=== PATIENT | male | born 1960 | race Two or more races ===

== ENCOUNTER 2020-01-18 12:39 | Outpatient (REF) | payer MEDICARE, MEDICAID, SELFPAY | END 2020-01-18 12:40 | disposition home or self-care (01) | LOC: HO.LAB 12:39 | PROVIDERS: PCP Internal Medicine; Visit Provider Internal Medicine | DX: Z20.828 Contact with and (suspected) exposure to other viral communicable diseases (principal) | CPT/HCPCS: 87635 ==

== ENCOUNTER 2021-07-02 10:56 | Emergency (ER) | payer OTHER, SELFPAY ==
--- NOTE | 2021-07-02 | ECG_ITS ---
Test Reason : palpitatiom Blood Pressure : / mmHG Vent. Rate : 147 BPM Atrial Rate : 120 BPM P-R Int : 000 ms QRS Dur : 078 ms QT Int : 280 ms P-R-T Axes : 000 006 022 degrees QTc Int : 438 ms Atrial fibrillation with RVR Nonspecific ST abnormality Abnormal ECG No previous ECGs available Referred By: Generic ED Physician Electronically Signed By:Basil Avila
[2021-07-02 11:51] VITALS: BP 145/85; PULSE 138; RESP 18; TEMP 35.5; O2SAT 96; BMI 31.1
--- NOTE | 2021-07-02 12:19 | ED_ITS ---
HPI - Arrhythmia/Palpitations General Chief Complaint: Arrhythmia/Palpitations Stated Complaint: Rapid heartbeat Time Seen by Provider: 07/02/21 12:11 Source: patient and family History of Present Illness HPI narrative: Patient presents with 1 hour worth of palpitations. Some dyspnea. No chest pain. He states he has had episodes similar to this in the past but has not been formally diagnosed with a specific rhythm such as atrial fibrillation. He recently had a stress test as an outpatient secondary to the symptoms. He does not yet know the results. He is not on medications for dysrhythmia. He denies other symptoms such as nausea vomiting No causative factors. He was sitting in a car when the symptoms started today. No recent illnesses Related Data Previous Rx's Medication Instructions Recorded apixaban 5 mg tablet (Eliquis) 5 mg PO BID #60 tab 07/02/21 diltiazem HCl 120 mg 120 mg PO DAILY #30 cap 07/02/21 capsule,extended release 24 hr Allergies Allergy/AdvReac Type Severity Reaction Status Date / Time No Known Allergies Allergy Verified 07/02/21 11:49 Review of Systems Constitutional: Comments: No fevers or chills Cardiovascular: Comments: Palpitations as mentioned Respiratory: Comments: Dyspnea without cough Gastrointestinal: Comments: No abdominal pain or nausea or vomiting or diarrhea Musculoskeletal: Comments: No leg swelling Integumentary/Breasts: Comments: No rash Neurologic: Comments: No weakness Psychiatric: Comments: No anxiety PMFSH Past Medical History Medical History (Updated 07/02/21 @ 14:55 by Marvin Rivas MD) Arrhythmia, long-term HTN (hypertension) Hyperlipidemia Social History Social History Advance Directives: No Advance Directives Information Provided: Yes Physical Exam Vital Signs: Vital Signs: Last Vital Signs Temp 96 F L 07/02/21 11:51 Pulse 109 H 07/02/21 13:49 Resp 18 07/02/21 13:49 BP 141/87 H 07/02/21 13:49 Pulse Ox 97 07/02/21 13:49 BMI result Body Mass Index 31.1 Const: Other: Awake alert in no acute distress. Tachycardic as noted HEENT: Other: No JVD Resp: Other: Clear and equal bilaterally without wheezes rales or rhonchi Cardio: Other: Tachycardic and irregularly irregular. Rate 130-140 beats per minute. No murmurs rubs or gallops GI: Other: Soft nontender nondistended Skin: Other: Warm pink and dry without rash Neuro: Other: Nonfocal Extrem: Other: No pedal edema Course Course Course Narrative: Tachy dysrhythmia Atrial fibrillation Supraventricular tachycardia Atrial flutter IV diltiazem, 10 mg. EKG shows irregularly irregular rhythm. Narrow complex. No obvious ischemia. 12:59. After diltiazem, patient is now in sinus rhythm with a rate of approximately 100 beats per minute. He feels asymptomatic. 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 Shea from [facility]. Will place in a call. His labs are unremarkable including troponin of 3.5 13:21. Case discussed with Dr. Guerra from [facility]. The records show only a Holter monitor so far. It showed no evidence of AFib. Will call his PCP. 13:46. Patient went back into atrial fibrillation 0150. Diltiazem 10 mg ordered. 1357. Patient converted back to sinus rhythm at a rate of 100 shortly after 2nd diltiazem dose. Will order diltiazem 30 mg short-acting p.o. as well as 120 mg long-acting. Will observe for the next hour. If he stays in sinus rhythm will discharge home with outpatient follow-up on Eliquis and diltiazem, if he goes back into atrial fibrillation while hospitalized for further monitoring 14:53. Patient is still in sinus rhythm. Stable for discharge home MDM - Arrhythmia/Palpitations Lab Data Result diagrams: 07/02/21 12:19 07/02/21 12:19 Labs: Lab Results 07/02/21 07/02/21 07/02/21 Range/Units 12:19 12:19 12:19 WBC 13.1 H (4.8-10.8) X10*3/uL RBC 5.43 (4.60-5.80) X10*6/uL Hgb 16.1 (14.0-18.0) g/dl Hct 47.6 (42.0-52.0) % MCV 87.7 (80.0-98.0) fL MCH 29.7 (27.0-33.0) pg MCHC 33.8 (31.0-36.0) g/dl RDW 12.9 (11.0-16.0) % Plt Count 376 (160-400) X10*3/uL MPV 10.7 (9.4-12.4) fL Immature Gran % (Auto) 0.3 (0.0-0.4) % Neut % (Auto) 58.6 (45-73) % Lymph % (Auto) 26.6 (20-40) % [place] % (Auto) 8.3 (2-11) % Eos % (Auto) 5.6 H (0-4) % Baso % (Auto) 0.6 (0-2) % Lymph # (Auto) 3.5 (1.2-4.9) X10*3/uL [place] # (Auto) 1.1 (0.1-1.2) X10*3/uL Eos # (Auto) 0.7 H (0.0-0.4) X10*3/uL Baso # (Auto) 0.1 (0.0-0.2) X10*3/uL Abs Immat Gran (auto) 0.04 H (0.00-0.03) X10*3/uL Absolute Neuts (auto) 7.7 (2.0-8.3) x10*3/uL Absolute Nucleated RBC 0.000 (0.0-0.012) X10*3/uL Nucleated RBC % (auto) 0.0 (0.0-0.2) /100WBC Sodium 138 (135-145) mmol/L Potassium 4.6 (3.3-5.1) mmol/L Chloride 104 (96-108) mmol/L Carbon Dioxide 23 (22-29) mmol/L Anion Gap 16 (12-20) BUN 17 H (9-16) mg/dL Creatinine 0.95 (0.5-1.4) mg/dL Estim Creat Clear Calc 90.3 Estimated GFR > 60 Random Glucose 123 H (60-115) mg/dL Calcium 10.4 H (8.4-10.2) mg/dL Troponin I High Sens 3.5 (<3.5-35.0) ng/L B-Natriuretic Peptide < 10 (<100) pg/mL Discharge Plan Discharge Clinical Impression: Atrial fibrillation Patient Disposition: Home, Self-Care Instructions: A-fib (Atrial Fibrillation) (ED) Additional Instructions: Follow-up with [facility] cardiology as soon as possible. Eliquis is a blood thinner Diltiazem is to help keep your heart rate low Prescriptions: New Eliquis 5 mg tablet 5 mg PO BID Qty: 60 0RF diltiazem HCl 120 mg capsule,extended release 24hr 120 mg PO DAILY Qty: 30 0RF
[2021-07-02 12:22] VITALS: BP 137/77; PULSE 144; RESP 20
[2021-07-02] MEDS: dilTIAZem HCL 50 MG/10 ML VIAL 10 MG IVPUSH ×2 (12:22→13:47)
[2021-07-02 12:27] LABS: MANUAL DIFF FLAG NO
[2021-07-02 12:33] LABS: Basophils Absolute Auto 0.1 X10*3/uL (0.0-0.2); Basophils Percent Auto 0.6 % (0-2); Eosinophils Absolute Auto 0.7 X10*3/uL (0.0-0.4); Eosinophils Percent Auto 5.6 % (0-4); Hematocrit 47.6 % (42.0-52.0); Hemoglobin 16.1 g/dl (14.0-18.0); Imm Gran Abs Auto 0.04 X10*3/uL (0.00-0.03); Imm Gran Pct Auto 0.3 % (0.0-0.4); Lymphocytes Absolute Auto 3.5 X10*3/uL (1.2-4.9); Lymphocytes Percent Auto 26.6 % (20-40); Mean Corpuscular HGB Conc 33.8 g/dl (31.0-36.0); Mean Corpuscular Hemoglobin 29.7 pg (27.0-33.0); Mean Corpuscular Volume 87.7 fL (80.0-98.0); Mean Platelet Volume 10.7 fL (9.4-12.4); Monocytes Absolute Auto 1.1 X10*3/uL (0.1-1.2); Monocytes Percent Auto 8.3 % (2-11); Neutrophils Absolute Auto 7.7 x10*3/uL (2.0-8.3); Neutrophils Percent Auto 58.6 % (45-73); Platelet Count 376 X10*3/uL (160-400); Red Blood Count 5.43 X10*6/uL (4.60-5.80); Red Cell Distribution Width 12.9 % (11.0-16.0); White Blood Count 13.1 X10*3/uL (4.8-10.8)
[2021-07-02 12:47] LABS: Anion Gap 16 (12-20); Blood Urea Nitrogen 17 mg/dL (9-16); Calcium 10.4 mg/dL (8.4-10.2); Carbon Dioxide 23 mmol/L (22-29); Chloride 104 mmol/L (96-108); Creatinine Clr Calc Pharmacy 90.3; Estimated Glomerular Filt Rate > 60; Glucose Random 123 mg/dL (60-115); Potassium 4.6 mmol/L (3.3-5.1); Sodium 138 mmol/L (135-145)
[2021-07-02 12:56] LABS: B Type Natriuretic Peptide < 10 pg/mL (<100); Troponin-I High Sensitivity 3.5 ng/L (<3.5-35.0)
--- NOTE | 2021-07-02 12:59 | ECG_ITS ---
Test Reason : PALPITATION Blood Pressure : / mmHG Vent. Rate : 099 BPM Atrial Rate : 099 BPM P-R Int : 150 ms QRS Dur : 084 ms QT Int : 336 ms P-R-T Axes : 043 -06 020 degrees QTc Int : 431 ms Normal sinus rhythm Normal ECG No previous ECGs available Referred By: Marvin Rivas Electronically Signed By:Basil Avila
[2021-07-02 13:42] VITALS: BP 115/91; PULSE 156; RESP 19
[2021-07-02 13:49] VITALS: BP 141/87; PULSE 109; RESP 18; O2SAT 97
[2021-07-02] MEDS: dilTIAZem HCL 30 MG TABLET PO (14:00)
[2021-07-02] MEDS: Apixaban 5 MG TABLET PO (14:01)
[2021-07-02] MEDS: dilTIAZem HCL SR 60 MG CAP.ER.12H 120 MG PO (14:07)
[2021-07-02 15:04] VITALS: BP 133/83; PULSE 96; RESP 18; O2SAT 96
== END 2021-07-02 15:18 | disposition home or self-care (01) ==
PROVIDERS: Emergency Provider Emergency Medicine; PCP Internal Medicine
DX: I48.91 Unspecified atrial fibrillation (principal); R00.2 Palpitations; R06.02 Shortness of breath; I10 Essential (primary) hypertension; E78.5 Hyperlipidemia, unspecified
CPT/HCPCS: 36415; 80048; 83880; 84484; 85025; 93005; 96374; 96376; 99284

== ENCOUNTER 2021-08-17 12:27 | Emergency (ER) | payer OTHER, SELFPAY ==
[2021-08-17 13:29] VITALS: BP 147/79; PULSE 81; RESP 20; TEMP 36.2; O2SAT 97; BMI 31.9
[2021-08-17 13:49] LABS: MANUAL DIFF FLAG NO
[2021-08-17 13:53] LABS: Basophils Absolute Auto 0.1 X10*3/uL (0.0-0.2); Basophils Percent Auto 0.7 % (0-2); Eosinophils Absolute Auto 0.5 X10*3/uL (0.0-0.4); Hematocrit 41.9 % (42.0-52.0); Imm Gran Abs Auto 0.01 X10*3/uL (0.00-0.03); Imm Gran Pct Auto 0.1 % (0.0-0.4); Lymphocytes Absolute Auto 2.4 X10*3/uL (1.2-4.9); Lymphocytes Percent Auto 27.2 % (20-40); Mean Corpuscular HGB Conc 33.4 g/dl (31.0-36.0); Mean Corpuscular Hemoglobin 29.2 pg (27.0-33.0); Mean Corpuscular Volume 87.3 fL (80.0-98.0); Mean Platelet Volume 10.9 fL (9.4-12.4); Monocytes Absolute Auto 0.8 X10*3/uL (0.1-1.2); Monocytes Percent Auto 8.4 % (2-11); Neutrophils Absolute Auto 5.3 x10*3/uL (2.0-8.3); Neutrophils Percent Auto 58.6 % (45-73); Platelet Count 318 X10*3/uL (160-400); Red Cell Distribution Width 12.9 % (11.0-16.0)
[2021-08-17 14:17] LABS: Alanine Aminotransferase 30 U/L (0-40); Albumin Level 4.7 g/dL (3.5-5.0); Alkaline Phosphatase 84 U/L (39-117); Anion Gap 12 (12-20); Aspartate Amino Transferase 14 U/L (5-37); Bilirubin Total 0.4 mg/dL (0.0-1.0); Blood Urea Nitrogen 16 mg/dL (9-16); Calcium 10.3 mg/dL (8.4-10.2); Carbon Dioxide 26 mmol/L (22-29); Chloride 107 mmol/L (96-108); Creatinine Clr Calc Pharmacy 98.6; Estimated Glomerular Filt Rate > 60; Glucose Random 106 mg/dL (60-115); Potassium 4.7 mmol/L (3.3-5.1); Sodium 140 mmol/L (135-145); Total Protein 7.7 g/dL (6.5-8.0)
--- NOTE | 2021-08-17 16:34 | ED.GENADULT ---
HPI - General Adult General Chief complaint: General Medical Stated complaint: Rectal bleed Time Seen by Provider: 08/17/21 16:58 Source: patient Mode of arrival: ambulatory Limitations: no limitations History of Present Illness HPI narrative: 61-year-old male presents with 2 days of rectal bleeding with burning and itching. Onset (ago): day(s) (2) Location: buttocks Radiation: non-radiation Severity: mild Severity scale (1-10): 3 Quality: burning Pain Consistency: intermittent Relieving factors: none Exacerbating factors: other (Bowel movement) Associated symptoms: denies other symptoms Treatments prior to arrival: none Related Data Previous Rx's Medication Instructions Recorded apixaban 5 mg tablet (Eliquis) 5 mg PO BID #60 tab 07/02/21 diltiazem HCl 120 mg 120 mg PO DAILY #30 cap 07/02/21 capsule,extended release 24 hr Allergies Allergy/AdvReac Type Severity Reaction Status Date / Time No Known Allergies Allergy Verified 07/02/21 11:49 Review of Systems Review of Systems: Constitutional: No Fever, No Chills ENT/Mouth: No Ear Pain, No Hoarseness, No sore throat Eyes: No Eye Pain, No Swelling, No Redness, No Foreign Body Cardiovascular: No Chest Pain, No SOB Respiratory: No Cough, No Dyspnea Gastrointestinal: Positive rectal bleeding, No Nausea, No Vomiting, No Diarrhea, No abdominal Pain Genitourinary: No Dysuria, No Hematuria Musculoskeletal: No joint pain, No Myalgias, No Joint Swelling Skin: No Skin lacerations, No rash Neuro: No Weakness, No Numbness, No Paresthesias, No Loss of Consciousness, No Dizziness, No Headache Psych: No Anxiety/Panic, No Depression Heme/Lymph: no easy bruising, no Lymphadenopathy Endocrine: No Polyuria, No Polydipsia Yes all other systems are reviewed and are negative [facility] Past Medical History Attestation statement: The following information was validated with the patient. 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 Oriented X3. No acute distress. Eyes: Pupils equal, round and reactive to light. Sclera nonicteric. ENT: Pharynx normal. Moist mucous membranes. Neck: Normal inspection. Neck supple. CVS: Normal heart rate and rhythm. Apical pulses are pulses to extremities. Respiratory: No respiratory distress. Breath sounds normal. Abdomen: Soft and nontender. Obese. Normoactive bowel sounds to all 4 quadrants. Genitourinary: Normal rectal tone. Internal and external hemorrhoids noted. Skin: Skin warm and dry. Normal skin color. Normal skin turgor. Extremities: No lower extremity edema. Gait well-balanced well coordinated. Neuro: No motor deficit. No sensory deficit. Cranial nerves 2-12 intact. Course Course Course Narrative: 61-year-old male presents with 2 days of bright red blood per rectum. States that he does have constipation, after pushing for a bowel movement he noted bright red blood approximately 2 days ago. Does have history of polyps, last colonoscopy was 4 years ago, next colonoscopy due in 1 year. He is on Eliquis for AFib. Labs drawn while patient was in emergency department waiting room. H&H is stable. No need for an emergent intervention at this time. Detailed discussion with patient and family, patient will follow up with Gastroenterology, will refer to Dr. Palomares for outpatient referral for colonoscopy. Recommendations for MiraLax daily. staff development nurse utilized for all correspondence. Google translate utilized for discharge instructions. Patient verbalized understanding of and agrees to plan of care to discharge home. Verbalized understanding of signs and symptoms indicating need for emergent intervention Medical Decision Making Differential Diagnosis Differential Diagnosis: Hemorrhoids, fissure, diverticular bleed, colon CA Medical Records Medical records reviewed: Yes I reviewed the patient's medical records. Lab Data Lab results reviewed: Yes I reviewed the patient's lab results. Result diagrams: 08/17/21 13:40 08/17/21 13:40 Labs: Lab Results 08/17/21 08/17/21 08/17/21 Range/Units 13:40 13:40 17:00 WBC 9.0 (4.8-10.8) X10*3/uL RBC 4.80 (4.60-5.80) X10*6/uL Hgb 14.0 (14.0-18.0) g/dl Hct 41.9 L (42.0-52.0) % MCV 87.3 (80.0-98.0) fL MCH 29.2 (27.0-33.0) pg MCHC 33.4 (31.0-36.0) g/dl RDW 12.9 (11.0-16.0) % Plt Count 318 (160-400) X10*3/uL MPV 10.9 (9.4-12.4) fL Immature Gran % (Auto) 0.1 (0.0-0.4) % Neut % (Auto) 58.6 (45-73) % Lymph % (Auto) 27.2 (20-40) % [place] % (Auto) 8.4 (2-11) % Eos % (Auto) 5.0 H (0-4) % Baso % (Auto) 0.7 (0-2) % Lymph # (Auto) 2.4 (1.2-4.9) X10*3/uL [place] # (Auto) 0.8 (0.1-1.2) X10*3/uL Eos # (Auto) 0.5 H (0.0-0.4) X10*3/uL Baso # (Auto) 0.1 (0.0-0.2) X10*3/uL Abs Immat Gran (auto) 0.01 (0.00-0.03) X10*3/uL Absolute Neuts (auto) 5.3 (2.0-8.3) x10*3/uL Absolute Nucleated RBC 0.000 (0.0-0.012) X10*3/uL Nucleated RBC % (auto) 0.0 (0.0-0.2) /100WBC Sodium 140 (135-145) mmol/L Potassium 4.7 (3.3-5.1) mmol/L Chloride 107 (96-108) mmol/L Carbon Dioxide 26 (22-29) mmol/L Anion Gap 12 (12-20) BUN 16 (9-16) mg/dL Creatinine 0.88 (0.5-1.4) mg/dL Estim Creat Clear Calc 98.6 Estimated GFR > 60 Random Glucose 106 (60-115) mg/dL Calcium 10.3 H (8.4-10.2) mg/dL Total Bilirubin 0.4 (0.0-1.0) mg/dL AST 14 (5-37) U/L ALT 30 (0-40) U/L Alkaline Phosphatase 84 (39-117) U/L Total Protein 7.7 (6.5-8.0) g/dL Albumin 4.7 (3.5-5.0) g/dL Stool Occult Blood POSITIVE (NEGATIVE) Discharge Plan Discharge Clinical Impression: Bright red blood per rectum, Bleeding hemorrhoids Patient Disposition: Home, Self-Care Instructions: Hemorrhoids (ED), Rectal Bleeding (ED) Additional Instructions: Le evaluaron por sangrado rectal. Utilice MiraLax a diario. MiraLax se puede comprar sin receta. Siga las instrucciones en el empaque. Puede considerar usar la pomada hemorroidal de la preparaci?n H para aliviar la picaz?n y el ardor. Te remit? al Dr. Palomares. Por favor llame y solicite snehal berny para el sangrado rectal. Por favor informe a la oficina que fue evaluado hace 4 a?os con colonoscop?a con recomendaci?n de repetir en 5 a?os. Dulce por elegir ca departamento de emergencias para borjas evaluaci?n. Por favor, janice un seguimiento con el m?dico de atenci?n primaria seg?n sea necesario. Regrese al departamento de emergencias por cualquier s?ntoma nuevo, preocupante o que empeore. You were evaluated for rectal bleeding. Please use MiraLax daily. MiraLax can be purchased [id number]. Follow the directions on the package. You may consider using preparation H hemorrhoidal ointment to alleviate itching and burning. I referred you to Dr. Palomares. Please call and request an appointment for rectal bleeding. Please inform the office that you were evaluated 4 years ago with colonoscopy with recommendation to repeat in 5 years. Thank you for choosing this emergency department for evaluation. Please follow-up with primary care physician as needed. Return to the emergency department for any new, concerning, or worsening symptoms. Prescriptions: No Action Eliquis 5 mg tablet 5 mg PO BID Qty: 60 0RF diltiazem HCl 120 mg capsule,extended release 24hr 120 mg PO DAILY Qty: 30 0RF Referrals: Alec Palomares MD [Physician] - (Rectal bleeding) Jessica Pearson MD [Primary Care Provider] - Interventions: ED Discharge Assessment Last Done: 08/17/21 17:32 Discharge Date/Time: 08/17/21 17:32
[2021-08-17 16:46] VITALS: BP 161/80; PULSE 84; RESP 20; TEMP 36.9; O2SAT 96
[2021-08-17 17:21] LABS: OBS Int Ctl Valid YES; OBS1 POSITIVE (NEGATIVE)
== END 2021-08-17 17:32 | disposition home or self-care (01) ==
PROVIDERS: Nurse Practitioner Family; Emergency Provider Emergency Medicine; PCP Internal Medicine
DX: K62.5 Hemorrhage of anus and rectum (principal); K64.9 Unspecified hemorrhoids; I10 Essential (primary) hypertension; I48.91 Unspecified atrial fibrillation; Z79.01 Long term (current) use of anticoagulants
CPT/HCPCS: 36415; 80053; 82272; 85025; 99283

== ENCOUNTER → 2021-09-14 11:49 | Outpatient (BNVA) | payer OTHER, SELFPAY | PROVIDERS: PCP Internal Medicine; Referring Provider Internal Medicine; Visit Provider Nurse Practitioner Family | DX: K62.5 Hemorrhage of anus and rectum (principal); K59.01 Slow transit constipation; K64.9 Unspecified hemorrhoids | CPT/HCPCS: 99202 ==

== ENCOUNTER → 2021-12-21 09:31 | Outpatient (BNVA) | payer OTHER, SELFPAY | PROVIDERS: PCP Internal Medicine; Visit Provider Nurse Practitioner Family | DX: K59.04 Chronic idiopathic constipation (principal) | CPT/HCPCS: 99212 ==

== ENCOUNTER → 2022-07-02 09:38 | Outpatient (BNVA) | payer OTHER, SELFPAY | PROVIDERS: PCP Internal Medicine; Visit Provider Nurse Practitioner Family | DX: Z12.11 Encounter for screening for malignant neoplasm of colon (principal) | CPT/HCPCS: 99212 ==

== ENCOUNTER 2022-07-09 14:03 | Observation (INO) | payer OTHER, SELFPAY ==
--- NOTE | ~2022-07-09 | XR_ITS ---
EXAMINATION: XR CHEST 2 VIEW CLINICAL INFORMATION: Preop clearance for surgery COMPARISON: None TECHNIQUE: PA and lateral views of the chest obtained. FINDINGS: The lungs are clear. There are no pleural effusions. The cardiomediastinal silhouette is normal. XR/XR chest 2V IMPRESSION: No active cardiopulmonary disease.
--- NOTE | ~2022-07-09 | CT_ITS ---
EXAMINATION: CT ABDOMEN AND PELVIS WITHOUT CONTRAST CLINICAL INFORMATION: Right-sided abdominal pain for 3 days. COMPARISON: None available. TECHNIQUE: Multidetector volumetric imaging was performed from the superior aspect of the liver through the pubic symphysis. Sagittal and coronal reformatted images were obtained on the technologist's workstation. This CT examination was performed using dose optimization techniques as appropriate, variously including the following: *Automated exposure control *Adjustment of mA and/or kV according to patient size (this includes techniques or standardized protocols for targeted exams where dose is matched to indication/reason for exam; i.e. extremities or head) *Use of iterative reconstruction technique DLP: 602 mGy-cm FINDINGS: LUNG BASES: The visualized lung bases are unremarkable. LIVER, GALLBLADDER, AND BILIARY TREE: No significant hepatic abnormality. Small dependent gallstone near the fundus without surrounding abnormality. No biliary ductal dilatation. PANCREAS: Unremarkable. SPLEEN: Unremarkable. ADRENAL GLANDS: Unremarkable. KIDNEYS AND URETERS: Left kidney punctate calculus in the upper pole. The right kidney and ureters bilaterally are unremarkable. BLADDER: Unremarkable. GASTROINTESTINAL TRACT: Stomach and small bowel unremarkable. Mild mural thickening and surrounding infiltrative changes are seen in the appendix. No evidence for perforation or abscess formation. The colon shows mild diverticulosis in the sigmoid colon without surrounding abnormality. The rectum is unremarkable ABDOMINAL WALL: No significant hernia is appreciated. LYMPH NODES: No lymphadenopathy. VASCULAR: Unremarkable. PELVIC VISCERA: Small fat-containing right inguinal hernia. No significant prostatic enlargement. Mild coarse central calcifications. OSSEOUS STRUCTURES: Unremarkable. CT/CT abdomen pelvis wo IV con IMPRESSION: 1. Acute appendicitis without evidence for perforation or abscess formation. 2. Cholelithiasis without evidence for acute cholecystitis. 3. Nonobstructing left upper pole intrarenal calculus. 4. Mild sigmoid diverticulosis without evidence for acute diverticulitis. 5. Small fat-containing right inguinal hernia without associated abnormality.
[2022-07-09 14:32] VITALS: BP 118/57; PULSE 81; RESP 18; TEMP 36.9; O2SAT 97; BMI 30.9
--- NOTE | 2022-07-09 14:32 | ED.ABDPAIN ---
HPI - Abdominal Pain General Chief Complaint: Abdominal Pain Stated Complaint: R flank pain Time Seen by Provider: 07/09/22 17:10 Source: patient and family Mode of arrival: ambulatory Limitations: language barrier (Kenyan-speaking) History of Present Illness HPI narrative: 62yoM with a PMHx of HTN, HLD, and arrhythmia currently on Eliquis who is Kenyan-speaking presenting to the ER with complaints of right-sided abdominal pain for the past 3 days worse today. Denies any fevers, nausea vomiting, pain upon urination, hematuria, black or bloody stools. Reports his last bowel movement was 3 days ago. Reports he had this a few months ago although a resolved on his own he was not seen for it. MD elicited complaint: abdominal pain Onset (ago): day(s) (3) Pain Consistency: constant Location: RLQ and R flank Severity: moderate Quality: aching Radiation: none Migration to: no migration Exacerbating factors: nothing Relieving factors: nothing Associated symptoms: denies other symptoms Related Data Home Medications Medication Instructions Recorded Confirmed albuterol sulfate 90 mcg/actuation 2 puff PO Q4H PRN dyspnea 09/14/21 07/16/22 aerosol inhaler fluoxetine 20 mg capsule 40 mg PO DAILY 09/14/21 07/16/22 pravastatin 20 mg tablet 20 mg PO BEDTIME 09/14/21 07/16/22 trazodone 50 mg tablet 50 mg PO BEDTIME PRN Insomnia 09/14/21 07/16/22 loratadine 10 mg tablet 10 mg PO BEDTIME 07/09/22 07/16/22 losartan 25 mg tablet 50 mg PO BEDTIME 07/09/22 07/16/22 Previous Rx's Medication Instructions Recorded apixaban 5 mg tablet (Eliquis) 5 mg PO BID #60 tabs 07/02/21 diltiazem HCl 120 mg 120 mg PO DAILY #30 caps 07/02/21 capsule,extended release 24 hr amoxicillin 500 mg-potassium 1 tab PO Q8H #30 tabs 07/11/22 clavulanate 125 mg tablet (Augmentin) Allergies Allergy/AdvReac Type Severity Reaction Status Date / Time No Known Allergies Allergy Verified 07/16/22 10:16 Review of Systems Review of Systems Constitutional : No Fever, No Chills, No Night Sweats, No Fatigue, No Malaise Cardiovascular : No Chest Pain, No SOB Respiratory : No Cough, No Sputum, No Wheezing, No Dyspnea Gastrointestinal : No Nausea, No Vomiting, No Diarrhea, + abdominal Pain, No Hematochezia, No Melena Genitourinary : No irregular bleeding, No Dysuria, No Urinary Frequency, No Hematuria,No Urinary Incontinence, No Urgency, No Flank Pain Musculoskeletal : No joint pain, No Myalgias, No Joint Swelling Skin : No Skin Lesions, No rash Neuro : No Weakness, No Numbness, No Paresthesias, No Loss of Consciousness, No Dizziness, No Headache Heme/Lymph: No Lymphadenopathy Endocrine : No Temperature Intolerance Yes all other systems are reviewed and are negative [facility] Past Medical History Attestation statement: The following information was validated with the patient. Source: old records reviewed, obtained from family and nursing notes reviewed Medical History HTN (hypertension) Hyperlipidemia Mood disorder Paroxysmal atrial fibrillation Surgical History History of back surgery Family History Family History Mother Esophageal cancer Social History Social History Household Members: Family Alcohol intake: current Alcohol intake frequency: holidays/special occasions only Patient Tobacco Use Status: Never used Tobacco service: No Current occupational status: retired Physical Exam ED Vital Signs: Vital Signs - 24 hr 07/09/22 14:32 Temperature 98.4 F Pulse Rate 81 Respiratory Rate 18 Blood Pressure 118/57 L Pulse Oximetry 97 Oxygen Delivery Method Room Air BMI result Body Mass Index 30.9 Vital signs have been reviewed and all within normal limits Appearance: Alert. Oriented X3. No acute distress. Head: Normal external exam. Normocephalic. Eyes: PERRLA. EOMI. Conjunctiva and sclera normal. Eyelids normal. ENT: Pharynx normal. Uvula midline. Moist mucous membranes. No trismus noted. No drooling noted. No muffled voice noted. Neck: Normal inspection. Neck supple. FROM. No adenopathy. No meningeal signs. CVS: Normal heart rate and rhythm. Heart sound normal. No murmurs noted. Pulses normal throughout. Respiratory: No respiratory distress. Painless inspiration. Breath sounds normal. No wheezes/rales/rhonchi noted. Chest nontender. No accessory muscle usage noted or decreased air movement noted. Abdomen: Soft and tenderness palpation to the right flank/right lower quadrant with guarding. Nondistended. No rigidity. Bowel sounds normal in all 4 quadrants. No distention noted. No organomegaly noted. No visible injury noted. + rebound tenderness. Positive Rovsing sign. Positive obturator's sign. Positive psoas sign. Negative Wheatley sign. Back: No CVA tenderness. Full range of motion noted. Skin: Skin warm and dry. Normal skin color. Normal skin turgor. No rashes/lesions/lacerations noted. Extremities: Extremities exhibit normal range of motion. Extremities nontender. Neuro: Oriented X 3. No motor deficit. No sensory deficit. Reflexes normal. Normal steady gait. CN's II-XII intact bilaterally? Course Course Course Narrative: 14:35PM This patient presents with RLQ pain, most concerning for kidney stones versus appendicitis. Abdominal exam without peritoneal signs. No evidence of acute abdomen at this time. Well appearing. Low suspicion for acute hepatobiliary disease (includng acute cholecystitis), acute infectious processes (pneumonia, hepatitis, pyelonephritis), vascular catastrophe, bowel obstruction or viscus perforation. Presentation not consistent with other acute, emergent causes of abdominal pain at this time. Plan: Labs, CT scan without IV contrast and UA ordered at this time patient to be sent back to the waiting room to be Valium the ED. Reevaluation(s) Reevaluation #1: Labs reviewed and random glucose 138. CRP 3.26. UA revealed blood otherwise no evidence of UTI. Patient negative for COVID/RSV/flu. Otherwise all other labs are within normal limits. CT scan revealed acute appendicitis without perforation or abscess. Along with diverticulosis without evidence of acute diverticulitis and cholelithiasis without acute cholecystitis and other chronic processes no other acute processes are noted. Therefore I discussed this case with Dr. Carorll who recommended blood cultures lactic acid started the patient on Zosyn he will put him on the surgical schedule for tomorrow. Patient understands and agrees with this plan. Will also provide IV fluids and some pain medications patient and updated they understand agree with the plan. Time: 17:17 Medical Decision Making Admission/Observation Consideration of admission/observation: Escalation of care including admission/observation considered Patient will be admitted for surgical procedure for acute appendicitis Consult Healthcare Provider Management of the patient was discussed with: Lead Care Manager (Dr. Carroll the general surgeon) Lab Data MDM Lab Attestation statement: I reviewed the patient's lab results. 07/09/22 15:23 07/09/22 15:23 Labs: Lab Results 07/09/22 07/09/22 07/09/22 Range/Units 15:23 15:23 15:23 WBC 8.4 (4.8-10.8) X10*3/uL RBC 4.75 (4.60-5.80) X10*6/uL Hgb 14.0 (14.0-18.0) g/dl Hct 42.3 (42.0-52.0) % MCV 89.1 (80.0-98.0) fL MCH 29.5 (27.0-33.0) pg MCHC 33.1 (31.0-36.0) g/dl RDW 12.8 (11.0-16.0) % Plt Count 300 (160-400) X10*3/uL MPV 10.9 (9.4-12.4) fL Immature Gran % (Auto) 0.1 (0.0-0.4) % Neut % (Auto) 56.7 (45-73) % Lymph % (Auto) 25.4 (20-40) % [place] % (Auto) 9.6 (2-11) % Eos % (Auto) 7.4 H (0-4) % Baso % (Auto) 0.8 (0-2) % Lymph # (Auto) 2.1 (1.2-4.9) X10*3/uL [place] # (Auto) 0.8 (0.1-1.2) X10*3/uL Eos # (Auto) 0.6 H (0.0-0.4) X10*3/uL Baso # (Auto) 0.1 (0.0-0.2) X10*3/uL Abs Immat Gran (auto) 0.01 (0.00-0.03) X10*3/uL Absolute Neuts (auto) 4.7 (2.0-8.3) x10*3/uL Absolute Nucleated RBC 0.000 (0.0-0.012) X10*3/uL Nucleated RBC % (auto) 0.0 (0.0-0.2) /100WBC ESR (0-15) MM/HR PT 14.8 H (10.0-13.1) SEC INR 1.3 H (0.9-1.1) Sodium 140 (135-145) mmol/L Potassium 4.3 (3.3-5.1) mmol/L Chloride 107 (96-108) mmol/L Carbon Dioxide 25 (22-29) mmol/L Anion Gap 12 (12-20) BUN 16 (9-16) mg/dL Creatinine 0.90 (0.5-1.4) mg/dL Estim Creat Clear Calc 93.7 Estimated GFR > 60 Random Glucose 138 H (60-115) mg/dL Lactic Acid (0.5-2.0) mmol/L Calcium 9.6 D (8.4-10.2) mg/dL Magnesium 2.1 (1.6-2.6) mg/dL Total Bilirubin 0.4 (0.0-1.0) mg/dL AST 9 (5-37) U/L ALT 17 (0-40) U/L Alkaline Phosphatase 81 (39-117) U/L C-Reactive Protein 3.26 H (< or = 0.50) mg/dL Total Protein 6.9 (6.5-8.0) g/dL Albumin 4.4 (3.5-5.0) g/dL Lipase 38 (8-78) U/L Urine Color Urine Appearance Urine pH (5.0-9.0) Ur Specific [place] (1.005-1.025) Urine Protein (Neg-Trace) mg/dL Urine Glucose (UA) (Negative) mg/dL Urine Ketones (Negative) mg/dL Urine Blood (Negative) Urine Nitrite (Negative) Ur Leukocyte Esterase (Negative) Urine RBC (0-2) /HPF Urine WBC (0-5) /HPF Ur Squamous Epith Cells (0-2) /HPF Urine Bacteria (None Seen) Hyaline Casts (0-2) /LPF Influenza Type A (PCR) (Negative) Influenza Type B (PCR) (Negative) RSV RNA Qual (PCR) (Negative) SARS-CoV-2 RNA (RT-PCR) (Negative) 07/09/22 07/09/22 07/09/22 Range/Units 15:23 15:23 15:23 WBC (4.8-10.8) X10*3/uL RBC (4.60-5.80) X10*6/uL Hgb (14.0-18.0) g/dl Hct (42.0-52.0) % MCV (80.0-98.0) fL MCH (27.0-33.0) pg MCHC (31.0-36.0) g/dl RDW (11.0-16.0) % Plt Count (160-400) X10*3/uL MPV (9.4-12.4) fL Immature Gran % (Auto) (0.0-0.4) % Neut % (Auto) (45-73) % Lymph % (Auto) (20-40) % [place] % (Auto) (2-11) % Eos % (Auto) (0-4) % Baso % (Auto) (0-2) % Lymph # (Auto) (1.2-4.9) X10*3/uL [place] # (Auto) (0.1-1.2) X10*3/uL Eos # (Auto) (0.0-0.4) X10*3/uL Baso # (Auto) (0.0-0.2) X10*3/uL Abs Immat Gran (auto) (0.00-0.03) X10*3/uL Absolute Neuts (auto) (2.0-8.3) x10*3/uL Absolute Nucleated RBC (0.0-0.012) X10*3/uL Nucleated RBC % (auto) (0.0-0.2) /100WBC ESR 10 (0-15) MM/HR PT (10.0-13.1) SEC INR (0.9-1.1) Sodium (135-145) mmol/L Potassium (3.3-5.1) mmol/L Chloride (96-108) mmol/L Carbon Dioxide (22-29) mmol/L Anion Gap (12-20) BUN (9-16) mg/dL Creatinine (0.5-1.4) mg/dL Estim Creat Clear Calc Estimated GFR Random Glucose (60-115) mg/dL Lactic Acid (0.5-2.0) mmol/L Calcium (8.4-10.2) mg/dL Magnesium (1.6-2.6) mg/dL Total Bilirubin (0.0-1.0) mg/dL AST (5-37) U/L ALT (0-40) U/L Alkaline Phosphatase (39-117) U/L C-Reactive Protein (< or = 0.50) mg/dL Total Protein (6.5-8.0) g/dL Albumin (3.5-5.0) g/dL Lipase (8-78) U/L Urine Color Yellow Urine Appearance Clear Urine pH 6.0 (5.0-9.0) Ur Specific [place] 1.020 (1.005-1.025) Urine Protein Negative (Neg-Trace) mg/dL Urine Glucose (UA) Negative (Negative) mg/dL Urine Ketones Negative (Negative) mg/dL Urine Blood Small (1+) H (Negative) Urine Nitrite Negative (Negative) Ur Leukocyte Esterase Negative (Negative) Urine RBC 6-10 H (0-2) /HPF Urine WBC 0-5 (0-5) /HPF Ur Squamous Epith Cells 0-2 (0-2) /HPF Urine Bacteria None Seen (None Seen) Hyaline Casts 0-2 (0-2) /LPF Influenza Type A (PCR) NEGATIVE (Negative) Influenza Type B (PCR) NEGATIVE (Negative) RSV RNA Qual (PCR) NEGATIVE (Negative) SARS-CoV-2 RNA (RT-PCR) NEGATIVE (Negative) 07/09/22 Range/Units 17:27 WBC (4.8-10.8) X10*3/uL RBC (4.60-5.80) X10*6/uL Hgb (14.0-18.0) g/dl Hct (42.0-52.0) % MCV (80.0-98.0) fL MCH (27.0-33.0) pg MCHC (31.0-36.0) g/dl RDW (11.0-16.0) % Plt Count (160-400) X10*3/uL MPV (9.4-12.4) fL Immature Gran % (Auto) (0.0-0.4) % Neut % (Auto) (45-73) % Lymph % (Auto) (20-40) % [place] % (Auto) (2-11) % Eos % (Auto) (0-4) % Baso % (Auto) (0-2) % Lymph # (Auto) (1.2-4.9) X10*3/uL [place] # (Auto) (0.1-1.2) X10*3/uL Eos # (Auto) (0.0-0.4) X10*3/uL Baso # (Auto) (0.0-0.2) X10*3/uL Abs Immat Gran (auto) (0.00-0.03) X10*3/uL Absolute Neuts (auto) (2.0-8.3) x10*3/uL Absolute Nucleated RBC (0.0-0.012) X10*3/uL Nucleated RBC % (auto) (0.0-0.2) /100WBC ESR (0-15) MM/HR PT (10.0-13.1) SEC INR (0.9-1.1) Sodium (135-145) mmol/L Potassium (3.3-5.1) mmol/L Chloride (96-108) mmol/L Carbon Dioxide (22-29) mmol/L Anion Gap (12-20) BUN (9-16) mg/dL Creatinine (0.5-1.4) mg/dL Estim Creat Clear Calc Estimated GFR Random Glucose (60-115) mg/dL Lactic Acid 0.9 (0.5-2.0) mmol/L Calcium (8.4-10.2) mg/dL Magnesium (1.6-2.6) mg/dL Total Bilirubin (0.0-1.0) mg/dL AST (5-37) U/L ALT (0-40) U/L Alkaline Phosphatase (39-117) U/L C-Reactive Protein (< or = 0.50) mg/dL Total Protein (6.5-8.0) g/dL Albumin (3.5-5.0) g/dL Lipase (8-78) U/L Urine Color Urine Appearance Urine pH (5.0-9.0) Ur Specific [place] (1.005-1.025) Urine Protein (Neg-Trace) mg/dL Urine Glucose (UA) (Negative) mg/dL Urine Ketones (Negative) mg/dL Urine Blood (Negative) Urine Nitrite (Negative) Ur Leukocyte Esterase (Negative) Urine RBC (0-2) /HPF Urine WBC (0-5) /HPF Ur Squamous Epith Cells (0-2) /HPF Urine Bacteria (None Seen) Hyaline Casts (0-2) /LPF Influenza Type A (PCR) (Negative) Influenza Type B (PCR) (Negative) RSV RNA Qual (PCR) (Negative) SARS-CoV-2 RNA (RT-PCR) (Negative) Independent Interpretation I performed an independent interpretation of an: Plain X-Ray (Chest x-ray reviewed by myself agreeable radiologist report) and CT Scan (CT scan reviewed by myself agreeable radiologist report) Radiology Impression Discussion of test interpretation with radiology: I have reviewed the radiologist's reading. Radiologist Impression: TECHNIQUE: PA and lateral views of the chest obtained. FINDINGS: The lungs are clear. There are no pleural effusions. The cardiomediastinal silhouette is normal. XR/XR chest 2V IMPRESSION: No active cardiopulmonary disease. FINDINGS: LUNG BASES: The visualized lung bases are unremarkable.? LIVER, GALLBLADDER, AND BILIARY TREE: No significant hepatic abnormality. Small dependent gallstone near the fundus without surrounding abnormality. No biliary ductal dilatation. PANCREAS: Unremarkable.? SPLEEN: Unremarkable.? ADRENAL GLANDS: Unremarkable.? KIDNEYS AND URETERS: Left kidney punctate calculus in the upper pole. The right kidney and ureters bilaterally are unremarkable. BLADDER: Unremarkable.? GASTROINTESTINAL TRACT: Stomach and small bowel unremarkable. Mild mural thickening and surrounding infiltrative changes are seen in the appendix. No evidence for perforation or abscess formation. The colon shows mild diverticulosis in the sigmoid colon without surrounding abnormality. The rectum is unremarkable ABDOMINAL WALL: No significant hernia is appreciated.? LYMPH NODES: No lymphadenopathy. VASCULAR: Unremarkable. PELVIC VISCERA: Small fat-containing right inguinal hernia. No significant prostatic enlargement. Mild coarse central calcifications. OSSEOUS STRUCTURES: Unremarkable.? CT/CT abdomen pelvis wo IV con IMPRESSION: 1.? Acute appendicitis without evidence for perforation or abscess formation. 2.? Cholelithiasis without evidence for acute cholecystitis. 3.? Nonobstructing left upper pole intrarenal calculus. 4.? Mild sigmoid diverticulosis without evidence for acute diverticulitis. 5.? Small fat-containing right inguinal hernia without associated abnormality. ? ? Independent Historian Clinical information obtained from an independent historian. History obtained from or confirmed by: Spouse External Record Review External record reviewed: Inpatient record, Office record, Outpatient record, Prior outpatient labs, Prior outpatient radiology, Primary care record and Outside ED record All prior inpatient/outpatient/labs/imaging and notes that are accessible in our system reviewed by myself Chronic Conditions Patient?s care impacted by: Hypertension Medications Administered Discontinued Medications Generic Name Dose Route Start Last Admin Trade Name Freq PRN Reason Stop Dose Admin Apixaban 5 mg 07/11/22 09:00 07/11/22 07:58 Apixaban 5 Mg Tablet PO 5 mg BID HENOK Administration Diltiazem HCl 120 mg 07/10/22 09:00 07/11/22 07:58 Diltiazem Hcl Cd 120 Mg Cap.Er.Deg PO 120 mg DAILY HENOK Administration Protocol Enoxaparin Sodium 90 mg 07/10/22 13:15 07/11/22 00:37 Enoxaparin Sodium 100 Mg/Ml Syringe 1 mg/kg (90 mg) 90 mg SUBCUT Administration Q12H HENOK Fluoxetine HCl 40 mg 07/10/22 09:00 07/11/22 07:58 Fluoxetine Hcl 20 Mg Capsule PO 40 mg DAILY HENOK Administration Sodium Chloride 1,000 mls @ 999 mls/hr 07/09/22 17:15 07/09/22 18:56 Ns IVCONT 07/09/22 18:15 Infused .Q1H1M HENOK Infusion Piperacillin Sod/Tazobactam 50 mls @ 100 mls/hr 07/09/22 17:12 07/09/22 18:56 Sod 3.375 gm/ Sodium Chloride IV 07/09/22 17:41 Infused ONCE ONE Infusion Dextrose/Lactated Ringer's 1,000 mls @ 60 mls/hr 07/09/22 18:30 07/11/22 08:06 D5lr IVCONT Infused .[id number] HENOK Infusion Piperacillin Sod/Tazobactam 50 mls @ 100 mls/hr 07/10/22 00:00 07/11/22 06:04 Sod 3.375 gm/ Sodium Chloride IV Infused Q6H HENOK Infusion Loratadine 10 mg 07/10/22 21:00 07/10/22 20:35 Loratadine 10 Mg Tablet PO 10 mg BEDTIME HENOK Administration Oxycodone HCl 5 mg 07/09/22 18:29 07/10/22 20:43 Oxycodone Hcl Immed Release 5 Mg Tablet PO 5 mg Q6H PRN Administration Pain, Moderate (Pain Scale 4-6 Pravastatin Sodium 20 mg 07/10/22 21:00 07/10/22 20:35 Pravastatin Sodium 20 Mg Tablet PO 20 mg BEDTIME HENOK Administration Sodium Chloride 3 ml 07/10/22 00:00 07/11/22 07:58 0.9 % Sodium Chloride Flush 3 Ml Syringe IVFLUSH Not Given QSHIFT HENOK Trazodone HCl 50 mg 07/09/22 22:31 07/10/22 20:43 Trazodone Hcl 50 Mg Tablet PO 50 mg BEDTIME PRN Administration Insomnia Zolpidem Tartrate 5 mg 07/09/22 18:29 07/09/22 22:51 Zolpidem Tartrate 5 Mg Tablet PO 5 mg BEDTIME PRN Administration Insomnia Critical Care Time Critical Care Time Critical Care Time: Yes Total Critical Care Time: 60 Attestation: I personally attest to this time spent taking care of the patient Discharge Plan Discharge Clinical Impression: Acute appendicitis Patient Disposition: Admitted As Inpatient Interventions: Admission Worksheet (ED) Last Done: 07/10/22 02:31 Discharge Date/Time: 07/10/22 02:37
[2022-07-09 15:44] LABS: MANUAL DIFF FLAG NO
[2022-07-09 15:47] LABS: Basophils Absolute Auto 0.1 X10*3/uL (0.0-0.2); Basophils Percent Auto 0.8 % (0-2); Eosinophils Absolute Auto 0.6 X10*3/uL (0.0-0.4); Eosinophils Percent Auto 7.4 % (0-4); Hematocrit 42.3 % (42.0-52.0); Imm Gran Abs Auto 0.01 X10*3/uL (0.00-0.03); Imm Gran Pct Auto 0.1 % (0.0-0.4); Lymphocytes Absolute Auto 2.1 X10*3/uL (1.2-4.9); Lymphocytes Percent Auto 25.4 % (20-40); Mean Corpuscular HGB Conc 33.1 g/dl (31.0-36.0); Mean Corpuscular Hemoglobin 29.5 pg (27.0-33.0); Mean Corpuscular Volume 89.1 fL (80.0-98.0); Mean Platelet Volume 10.9 fL (9.4-12.4); Monocytes Absolute Auto 0.8 X10*3/uL (0.1-1.2); Monocytes Percent Auto 9.6 % (2-11); Neutrophils Absolute Auto 4.7 x10*3/uL (2.0-8.3); Neutrophils Percent Auto 56.7 % (45-73); Platelet Count 300 X10*3/uL (160-400); Red Blood Count 4.75 X10*6/uL (4.60-5.80); Red Cell Distribution Width 12.8 % (11.0-16.0); White Blood Count 8.4 X10*3/uL (4.8-10.8)
[2022-07-09 15:51] LABS: Appearance Urine Clear; Color Urine Yellow; Glucose Urine UA Negative (Negative); Leukocyte Esterase Urine Negative (Negative); Nitrite Urine Negative (Negative); UMIC TRIGGER UACC YES; Urine Blood Small (1+) (Negative); Urine Ketones Negative (Negative); Urine Protein Negative (Neg-Trace)
[2022-07-09 15:55] LABS: INTERNATIONAL NORM RATIO 1.3 (0.9-1.1); Prothrombin Time 14.8 SEC (10.0-13.1)
[2022-07-09 15:56] LABS: Bacteria Urine None Seen (None Seen); Hyaline Casts Urine 0-2 /LPF (0-2); Squamous Epithelial Cell Urine 0-2 /HPF (0-2); WBC Urine 0-5 /HPF (0-5)
[2022-07-09 16:02] LABS: Alanine Aminotransferase 17 U/L (0-40); Albumin Level 4.4 g/dL (3.5-5.0); Alkaline Phosphatase 81 U/L (39-117); Anion Gap 12 (12-20); Aspartate Amino Transferase 9 U/L (5-37); Bilirubin Total 0.4 mg/dL (0.0-1.0); Blood Urea Nitrogen 16 mg/dL (9-16); C Reactive Protein 3.26 mg/dL (< or = 0.50); Calcium 9.6 mg/dL (8.4-10.2); Carbon Dioxide 25 mmol/L (22-29); Chloride 107 mmol/L (96-108); Creatinine Clr Calc Pharmacy 93.7; Estimated Glomerular Filt Rate > 60; Glucose Random 138 mg/dL (60-115); Lipase 38 U/L (8-78); Magnesium 2.1 mg/dL (1.6-2.6); Potassium 4.3 mmol/L (3.3-5.1); Sodium 140 mmol/L (135-145); Total Protein 6.9 g/dL (6.5-8.0)
[2022-07-09 16:23] LABS: Influenza A PCR NEGATIVE (Negative); Influenza B PCR NEGATIVE (Negative); Resp Syncy Virus RNA Qual PCR NEGATIVE (Negative); SARS COV2 PCR INHOUSE NEGATIVE (Negative)
[2022-07-09 16:30] LABS: Erythrocyte Sedimentation Rate 10 MM/HR (0-15)
[2022-07-09] MEDS: Piperacillin Sodium/Tazobactam 3.375 GM in 0.9 % Sodium Chloride 50 ML IV (17:38)
[2022-07-09] MEDS: 0.9 % Sodium Chloride 1,000 ML 999 ML IVCONT (17:38)
[2022-07-09 17:47] LABS: Lactic Acid 0.9 mmol/L (0.5-2.0)
--- NOTE | 2022-07-09 18:09 | PHA.MEDREC ---
Pharmacy Consult ? Medication Reconciliation Pharmacy has completed the medication reconciliation. Per patient, he is no longer on amitriptyline, docusate, gabapentin, and olanzapine. Tenzin
--- NOTE | 2022-07-09 18:35 | P.HPGS_ITS ---
History of Present Illness History of Present Illness Date of Service: 07/09/22 Chief complaint: Early acute appendicitis Narrative: Omari Landa is a 62 year old male presenting with complaints of abdominal pain in the right lower quadrant which began approximately 3 days ago and gradually increased in severity. He reports a similar episode several months ago which resolved spontaneously without the need for any medical assistance. He denies nausea, vomiting, fever, or chills. He did have some pain with ambulation denies bloody stool, hematuria, diarrhea or constipation. Workup in the emergency department revealed normal WBC. CT abdomen and pelvis however revealed a thickened appendix suggestive of appendicitis without evidence of perforation. He is admitted to the surgical service for further management. Review of Systems Review of Systems: Yes all other systems are reviewed and are negative Constitutional: Constitutional: Denies chills, Denies fever(s), Denies headache(s), Denies poor appetite and Denies weakness ENT: Denies headache(s) Cardiovascular: Cardiovascular: Denies chest pain, Reports irregular heart rhythm, Denies palpitations and Denies dyspnea Respiratory: Respiratory: Denies cough, Denies excessive phlegm production and Denies dyspnea Gastrointestinal: Gastrointestinal: Reports abdominal pain, Denies bloating, Denies change in bowel habits, Denies constipation, Denies heartburn, Denies diarrhea, Denies nausea and Denies vomiting Genitourinary: Genitourinary: Denies difficulty urinating and Denies urinary frequency Musculoskeletal: Musculoskeletal: Denies back pain, Denies muscle weakness and Denies numbness Integumentary/Breasts: Skin/Breast: Denies changing lesions and Denies unusual bruising Neurologic: Denies headache(s), Denies numbness, Denies paresthesias and Denies weakness Psychiatric: Psychiatric: Denies anxiety and Denies depression Endocrine: Endocrine: Denies palpitations Hematologic/Lymphatic: Hematologic/Lymphatic: Denies lymphadenopathy [facility] Past Medical History Medical History Arrhythmia, chcf HTN (hypertension) Hyperlipidemia Social History Social History Household Members: Family Alcohol intake: current Alcohol intake frequency: holidays/special occasions only Patient Tobacco Use Status: Never used Tobacco Advance Directives: No Advance Directives Information Provided: No Meds Allergies Allergy/AdvReac Type Severity Reaction Status Date / Time No Known Allergies Allergy Verified 07/02/22 09:55 Active Medications: Current Medications Acetaminophen (Acetaminophen 325 Mg Tablet) 650 mg PO QID PRN PRN Reason: headache, temp > 101 Hydromorphone HCl (Hydromorphone Hcl 0.5 Mg/0.5 Ml Syringe) 0.5 mg IVPUSH Q3H PRN; Protocol PRN Reason: Pain, Severe (Pain Scale 7-10) Dextrose/Lactated Ringer's (D5lr) 1,000 mls @ 125 mls/hr IVCONT .Q8H [facility] Piperacillin Sod/Tazobactam (Sod 3.375 gm/ Sodium Chloride) 50 mls @ 100 mls/hr IV Q6H [facility] Ondansetron HCl (Ondansetron Hcl 4 Mg/2 Ml Vial) 4 mg IVPUSH Q8H PRN PRN Reason: Nausea Oxycodone HCl (Oxycodone Hcl Immed Release 5 Mg Tablet) 5 mg PO Q6H PRN PRN Reason: Pain, Moderate (Pain Scale 4-6 Pharmacy Consult (Consult Rx Perform Med Rec) 1 each MISCELLANE ONCE PRN PRN Reason: Consult order Pharmacy Consult (Consult Rx Perform Med Rec) 1 each MISCELLANE ONCE PRN PRN Reason: Consult order Sodium Chloride (0.9 % Sodium Chloride Flush 3 Ml Syringe) 3 ml IVFLUSH QSHIFT HENOK Zolpidem Tartrate (Zolpidem Tartrate 5 Mg Tablet) 5 mg PO BEDTIME PRN PRN Reason: Insomnia Home Medications Medication Instructions Recorded Confirmed Last Taken Type albuterol sulfate 90 mcg/actuation 2 puff PO Q4H PRN dyspnea 09/14/21 07/09/22 Unknown History aerosol inhaler fluoxetine 20 mg capsule 40 mg PO DAILY 09/14/21 07/09/22 07/09/22 07:00 History pravastatin 20 mg tablet 20 mg PO BEDTIME 09/14/21 07/09/22 07/08/22 History trazodone 50 mg tablet 50 mg PO BEDTIME PRN Insomnia 09/14/21 07/09/22 07/08/22 History loratadine 10 mg tablet 10 mg PO BEDTIME 07/09/22 07/09/22 07/08/22 History losartan 25 mg tablet 50 mg PO BEDTIME 0307/09/22 07/08/22 History Physical Exam Vital Signs: Vital Signs: Last Vital Signs Temp 98.4 F 07/09/22 14:32 Pulse 81 07/09/22 14:32 Resp 18 07/09/22 14:32 BP 118/57 L 07/09/22 14:32 Pulse Ox 97 07/09/22 14:32 O2 Del Method Room Air 07/09/22 14:32 BMI result Body Mass Index 30.9 Const: General: cooperative and no acute distress Nutritional Appearance: well nourished Orientation/consciousness: patient oriented x3 Limitations: no limitations HEENT: Head: Yes normocephalic and Yes atraumatic Ears: hearing grossly normal bilaterally Resp: Effort & Inspection: normal respiratory effort, no audible wheezes, no cough and no respiratory distress Cardio: Jugular venous distension: no JVD GI: Inspection: Yes normal to inspection Palpation (GI): Soft to palpation, Tenderness to palpation present (GI) in the RLQ and at McBurney's point, no guarding and not rigid Percussion: Yes normal to percussion Auscultation: normal bowel sounds Rectal Exam - Male: Yes deferred Skin: Other: Warm, dry, no rash Neuro: General: patient oriented x3 Extrem: General: Yes no clubbing, cyanosis or edema Results Results Labs: Short CBC 07/09/22 Range/Units 15:23 WBC 8.4 (4.8-10.8) X10*3/uL Hgb 14.0 (14.0-18.0) g/dl Hct 42.3 (42.0-52.0) % Plt Count 300 (160-400) X10*3/uL BMP 07/09/22 15:23 Sodium 140 Potassium 4.3 Chloride 107 Carbon Dioxide 25 BUN 16 Creatinine 0.90 Calcium 9.6 D Liver Function 07/09/22 Range/Units 15:23 Total Bilirubin 0.4 (0.0-1.0) mg/dL AST 9 (5-37) U/L ALT 17 (0-40) U/L Alkaline Phosphatase 81 (39-117) U/L Albumin 4.4 (3.5-5.0) g/dL Urine 07/09/22 Range/Units 15:23 Urine Color Yellow Urine Appearance Clear Urine pH 6.0 (5.0-9.0) Ur Specific [place] 1.020 (1.005-1.025) Urine Protein Negative (Neg-Trace) mg/dL Urine Glucose (UA) Negative (Negative) mg/dL Abdomen CT scan report/results: image reviewed CT scan - pelvis: image reviewed Assessment and Plan (1) Acute appendicitis: Status: Acute (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 Pain increased in severity he subsequently presented to the emergency department for further evaluation. On examination the patient was noted to be tender in the right lower quadrant with no rebound, guarding or rigidity. CT abdomen and pelvis revealed a thickened appendix suggestive of early appendicitis without perforation. Laboratories revealed a normal WBC. Patient is on anticoagulation for his arrhythmia. As he appears to have early appendicitis with mild symptoms I recommended non operative management with IV antibiotics and bowel rest. His oral anticoagulation will be held tonight. Hospitalist consultation requested. We discussed the possibility of needing laparoscopic or possible open appendectomy either during this admission or as an elective ambulatory surgery. He expressed understanding and agrees with the plan. Time Spent With Patient Time: Total time managing care of this patient today ____ minutes. Quality Stroke Does the patient have a stroke diagnosis?: No VTE Prior VTE?: No VTE Risk Level:: Surgical - moderate VTE Device Contraindication: N/A - Device Ordered VTE Drug Contraindication: Treatment Not Indicated Procedures Date of Service Date of Service: 07/09/22
--- NOTE | 2022-07-09 18:42 | PC.NURSE ---
instructed on npo status. last meal 1740h, had a bag of potato chips. in nad at this time. vss.
[2022-07-09 18:54] VITALS: BP 133/77; PULSE 71; RESP 16; TEMP 36.8; O2SAT 93
[2022-07-09] MEDS: Dextrose 5 % and Lactated Ring 1,000 ML 125 ML IVCONT (18:56)
[2022-07-09 22:26] VITALS: BP 110/71; PULSE 72; RESP 18; TEMP 36.8; O2SAT 95
[2022-07-09] MEDS: oxyCODONE HCl Immed Release 5 MG TABLET PO (22:50)
[2022-07-09] MEDS: Zolpidem Tartrate 5 MG TABLET PO (22:51)
[2022-07-09] MEDS: traZODone HCL 50 MG TABLET PO (22:51)
[2022-07-10] MEDS: Piperacillin Sodium/Tazobactam 3.375 GM in 0.9 % Sodium Chloride 50 ML IV ×5 (00:45→23:12)
[2022-07-10] MEDS: 0.9 % Sodium Chloride Flush 3 ML SYRINGE IVFLUSH ×2 (00:46→17:09)
[2022-07-10] MEDS: Dextrose 5 % and Lactated Ring 1,000 ML 125 ML IVCONT ×2 (02:48→11:39)
[2022-07-10 03:22] VITALS: BP 145/68; PULSE 73; RESP 16; TEMP 36.1; O2SAT 95
[2022-07-10] MEDS: oxyCODONE HCl Immed Release 5 MG TABLET PO ×2 (04:35→20:43)
[2022-07-10 07:01] LABS: MANUAL DIFF FLAG NO
[2022-07-10 07:06] LABS: Basophils Absolute Auto 0.1 X10*3/uL (0.0-0.2); Basophils Percent Auto 0.6 % (0-2); Eosinophils Absolute Auto 0.6 X10*3/uL (0.0-0.4); Eosinophils Percent Auto 6.5 % (0-4); Hematocrit 39.2 % (42.0-52.0); Hemoglobin 12.7 g/dl (14.0-18.0); Imm Gran Abs Auto 0.04 X10*3/uL (0.00-0.03); Imm Gran Pct Auto 0.4 % (0.0-0.4); Lymphocytes Absolute Auto 1.7 X10*3/uL (1.2-4.9); Lymphocytes Percent Auto 18.8 % (20-40); Mean Corpuscular HGB Conc 32.4 g/dl (31.0-36.0); Mean Corpuscular Hemoglobin 29.1 pg (27.0-33.0); Mean Corpuscular Volume 89.7 fL (80.0-98.0); Mean Platelet Volume 11.2 fL (9.4-12.4); Monocytes Absolute Auto 0.9 X10*3/uL (0.1-1.2); Monocytes Percent Auto 9.5 % (2-11); Neutrophils Absolute Auto 5.8 x10*3/uL (2.0-8.3); Neutrophils Percent Auto 64.2 % (45-73); Platelet Count 267 X10*3/uL (160-400); Red Blood Count 4.37 X10*6/uL (4.60-5.80); Red Cell Distribution Width 12.8 % (11.0-16.0)
[2022-07-10 07:19] LABS: Anion Gap 12 (12-20); Blood Urea Nitrogen 15 mg/dL (9-16); Calcium 9.1 mg/dL (8.4-10.2); Carbon Dioxide 27 mmol/L (22-29); Chloride 108 mmol/L (96-108); Creatinine Clr Calc Pharmacy 100.4; Estimated Glomerular Filt Rate > 60; Glucose Random 129 mg/dL (60-115); Potassium 4.5 mmol/L (3.3-5.1); Sodium 142 mmol/L (135-145)
[2022-07-10 08:00] VITALS: BP 121/68; PULSE 67; RESP 16; TEMP 36.7; O2SAT 96
[2022-07-10] MEDS: dilTIAZem HCL CD 120 MG CAP.ER.DEG PO (08:06)
[2022-07-10] MEDS: FLUoxetine HCl 20 MG CAPSULE 40 MG PO (08:06)
--- NOTE | 2022-07-10 08:30 | P.PNGS_ITS ---
Subjective Subjective Date of Service: 07/10/22 Interval history: Feels a little better this morning, RLQ pain slightly improved but reports upper abdominal pain now and gas pains. Passing flatus. Physical Exam Vital Signs: Vital Signs: Last Vital Signs Temp 98.0 F 07/10/22 08:00 Pulse 67 07/10/22 08:00 Resp 16 07/10/22 08:00 BP 121/68 07/10/22 08:00 Pulse Ox 96 07/10/22 08:00 O2 Del Method Room Air 07/10/22 08:00 BMI result Body Mass Index 30.9 Const: General: comfortable, no acute distress and alert Orientation/ consciousness: patient oriented x3 Resp: Effort & Inspection: normal respiratory effort GI: Inspection: Yes normal to inspection and No distended Palpation (GI): Soft to palpation, Tenderness to palpation present (GI) in the RLQ (moderate); with no rebound tenderness and Rovsing's sign negative, no guarding and not rigid Percussion: Yes normal to percussion Skin: General skin exam: no rashes or lesions noted Neuro: General: patient oriented x3 and moves all extremities Objective Data Active Medications Acetaminophen (Acetaminophen 325 Mg Tablet) 650 mg PO QID PRN PRN Reason: headache, temp > 101 Diltiazem HCl (Diltiazem Hcl Cd 120 Mg Cap.Er.Deg) 120 mg PO DAILY [facility]; Protocol Last Admin: 07/10/22 08:06 Dose: 120 mg Documented By: KARTHIKEYAN Fluoxetine HCl (Fluoxetine Hcl 20 Mg Capsule) 40 mg PO DAILY [facility] Last Admin: 07/10/22 08:06 Dose: 40 mg Documented By: KARTHIKEYAN Hydromorphone HCl (Hydromorphone Hcl 0.5 Mg/0.5 Ml Syringe) 0.5 mg IVPUSH Q3H PRN; Protocol PRN Reason: Pain, Severe (Pain Scale 7-10) Dextrose/Lactated Ringer's (D5lr) 1,000 mls @ 125 mls/hr IVCONT .Q8H [facility] Last Infusion: 07/10/22 06:23 Dose: 125 mls/hr Documented By: JEANINE Piperacillin Sod/Tazobactam (Sod 3.375 gm/ Sodium Chloride) 50 mls @ 100 mls/hr IV Q6H [facility] Last Infusion: 07/10/22 06:23 Dose: 0 mls/hr Documented By: JEANINE Loratadine (Loratadine 10 Mg Tablet) 10 mg PO BEDTIME [facility] Ondansetron HCl (Ondansetron Hcl 4 Mg/2 Ml Vial) 4 mg IVPUSH Q8H PRN PRN Reason: Nausea Oxycodone HCl (Oxycodone Hcl Immed Release 5 Mg Tablet) 5 mg PO Q6H PRN PRN Reason: Pain, Moderate (Pain Scale 4-6 Last Admin: 07/10/22 04:35 Dose: 5 mg Documented By: JEANINE Pharmacy Consult (Consult Rx Perform Med Rec) 1 each MISCELLANE ONCE PRN PRN Reason: Consult order Pravastatin Sodium (Pravastatin Sodium 20 Mg Tablet) 20 mg PO BEDTIME [facility] Sodium Chloride (0.9 % Sodium Chloride Flush 3 Ml Syringe) 3 ml IVFLUSH QSHIFT [facility]ENOK Last Admin: 07/10/22 08:07 Dose: Not Given Documented By: KARTHIKEYAN Non-Admin Reason: IV Running Trazodone HCl (Trazodone Hcl 50 Mg Tablet) 50 mg PO BEDTIME PRN PRN Reason: Insomnia Last Admin: 07/09/22 22:51 Dose: 50 mg Documented By: CRISTINO Zolpidem Tartrate (Zolpidem Tartrate 5 Mg Tablet) 5 mg PO BEDTIME PRN PRN Reason: Insomnia Last Admin: 07/09/22 22:51 Dose: 5 mg Documented By: CRISTINO Labs 07/10/22 05:22 07/10/22 05:22 Labs: Laboratory Results - last 24 hr 07/09/22 07/09/22 07/09/22 15:23 15:23 15:23 MCV 89.1 MCH 29.5 MCHC 33.1 RDW 12.8 Plt Count 300 MPV 10.9 Immature Gran % (Auto) 0.1 Neut % (Auto) 56.7 Lymph % (Auto) 25.4 [place] % (Auto) 9.6 Eos % (Auto) 7.4 H Baso % (Auto) 0.8 Lymph # (Auto) 2.1 [place] # (Auto) 0.8 Eos # (Auto) 0.6 H Baso # (Auto) 0.1 Abs Immat Gran (auto) 0.01 Absolute Neuts (auto) 4.7 Absolute Nucleated RBC 0.000 Nucleated RBC % (auto) 0.0 ESR PT 14.8 H INR 1.3 H Anion Gap 12 Estim Creat Clear Calc 93.7 Estimated GFR > 60 Random Glucose 138 H Lactic Acid Calcium 9.6 D Magnesium 2.1 Total Bilirubin 0.4 AST 9 ALT 17 Alkaline Phosphatase 81 C-Reactive Protein 3.26 H Total Protein 6.9 Albumin 4.4 Lipase 38 Urine Color Urine Appearance Urine pH Ur Specific [place] Urine Protein Urine Glucose (UA) Urine Ketones Urine Blood Urine Nitrite Ur Leukocyte Esterase Urine RBC Urine WBC Ur Squamous Epith Cells Urine Bacteria Hyaline Casts Influenza Type A (PCR) Influenza Type B (PCR) RSV RNA Qual (PCR) SARS-CoV-2 RNA (RT-PCR) 07/09/22 07/09/22 07/09/22 15:23 15:23 15:23 MCV MCH MCHC RDW Plt Count MPV Immature Gran % (Auto) Neut % (Auto) Lymph % (Auto) [place] % (Auto) Eos % (Auto) Baso % (Auto) Lymph # (Auto) [place] # (Auto) Eos # (Auto) Baso # (Auto) Abs Immat Gran (auto) Absolute Neuts (auto) Absolute Nucleated RBC Nucleated RBC % (auto) ESR 10 PT INR Anion Gap Estim Creat Clear Calc Estimated GFR Random Glucose Lactic Acid Calcium Magnesium Total Bilirubin AST ALT Alkaline Phosphatase C-Reactive Protein Total Protein Albumin Lipase Urine Color Yellow Urine Appearance Clear Urine pH 6.0 Ur Specific [place] 1.020 Urine Protein Negative Urine Glucose (UA) Negative Urine Ketones Negative Urine Blood Small (1+) H Urine Nitrite Negative Ur Leukocyte Esterase Negative Urine RBC 6-10 H Urine WBC 0-5 Ur Squamous Epith Cells 0-2 Urine Bacteria None Seen Hyaline Casts 0-2 Influenza Type A (PCR) NEGATIVE Influenza Type B (PCR) NEGATIVE RSV RNA Qual (PCR) NEGATIVE SARS-CoV-2 RNA (RT-PCR) NEGATIVE 07/09/22 07/10/22 07/10/22 17:27 05:22 05:22 MCV 89.7 MCH 29.1 MCHC 32.4 RDW 12.8 Plt Count 267 MPV 11.2 Immature Gran % (Auto) 0.4 Neut % (Auto) 64.2 Lymph % (Auto) 18.8 L [place] % (Auto) 9.5 Eos % (Auto) 6.5 H Baso % (Auto) 0.6 Lymph # (Auto) 1.7 [place] # (Auto) 0.9 Eos # (Auto) 0.6 H Baso # (Auto) 0.1 Abs Immat Gran (auto) 0.04 H Absolute Neuts (auto) 5.8 Absolute Nucleated RBC 0.000 Nucleated RBC % (auto) 0.0 ESR PT INR Anion Gap 12 Estim Creat Clear Calc 100.4 Estimated GFR > 60 Random Glucose 129 H Lactic Acid 0.9 Calcium 9.1 Magnesium Total Bilirubin AST ALT Alkaline Phosphatase C-Reactive Protein Total Protein Albumin Lipase Urine Color Urine Appearance Urine pH Ur Specific [place] Urine Protein Urine Glucose (UA) Urine Ketones Urine Blood Urine Nitrite Ur Leukocyte Esterase Urine RBC Urine WBC Ur Squamous Epith Cells Urine Bacteria Hyaline Casts Influenza Type A (PCR) Influenza Type B (PCR) RSV RNA Qual (PCR) SARS-CoV-2 RNA (RT-PCR) Procedures Date of Service Date of Service: 07/10/22 Progress Note: A&P Assessment and plan (1) Acute appendicitis: Status: Acute (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 He feels slightly improved today with less RLQ pain. RLQ remains tender but decreasingly, abd relatively benign. WBC remains normal. Improving with supportive measures. Cont IV zosyn, IVF. Will advance to clear liquids. Cont to hold eliquis for now. Time Spent With Patient Time: Total time managing care of this patient today ____ minutes. Quality Stroke Does the patient have a stroke diagnosis?: No VTE Prior VTE?: No VTE Risk Level:: Surgical - moderate VTE Device Contraindication: N/A - Device Ordered VTE Drug Contraindication: Treatment Not Indicated
--- NOTE | 2022-07-10 08:42 | MHC.CM.PN ---
PATIENT LVIES WITH DAUGHTER, TIERA, AND HER FAMILY. HE USES A CANE DAILY AND HAS YEARLY [facility] RN VISITS. THESE VISITS ARE TYPICALLY OVER THE PHONE. FAMILY HELPS WITH ADLS IF NEEDED. HE IS AGREEABLE TO ASSIGNING A HCP DOCUMENT AND IT WILL BE PLACED IN CHART AND UPLOADED GUZMAN 07/10 EXPLAINED, SIGNED, AND PLACED IN CHART PLAN WILL BE HOME WHEN MEDICALLY CLEAR FAMILY WILL TRANSPORT
--- NOTE | 2022-07-10 12:04 | P.CONHOSP_ITS ---
History of Present Illness Data of Consult Service Date: 07/10/22 Requesting physician: Daniele Carroll Primary Care Provider: Jessica Pearson MD [facility] Reason for consult: medical management 62-year-old male with history of paroxysmal atrial fibrillation anticoagulated with Eliquis, hypertension, hyperlipidemia, mood disorder, and mild persistent asthma admitted to General surgery for management of acute appendicitis with consult placed to hospitalist service for routine medical management. Patient was admitted for conservative management of acute appendicitis. He reports improvement of his abdominal pain and is passing flatus. Eliquis is currently on hold. Review of Systems Review of Systems: Yes all other systems are reviewed and are negative [facility] Medical History (Updated 07/10/22 @ 12:08 by GERMANIA Westfall) HTN (hypertension) Hyperlipidemia Mood disorder Paroxysmal atrial fibrillation Social History Household Members: Family Alcohol intake: current Alcohol intake frequency: holidays/special occasions only Patient Tobacco Use Status: Never used Tobacco service: No Current occupational status: retired [employer] Allergies Allergy/AdvReac Type Severity Reaction Status Date / Time No Known Allergies Allergy Verified 07/02/22 09:55 Active Medications: Current Medications Acetaminophen (Acetaminophen 325 Mg Tablet) 650 mg PO QID PRN PRN Reason: headache, temp > 101 Diltiazem HCl (Diltiazem Hcl Cd 120 Mg Cap.Er.Deg) 120 mg PO DAILY [facility]; Protocol Last Admin: 07/10/22 08:06 Dose: 120 mg Fluoxetine HCl (Fluoxetine Hcl 20 Mg Capsule) 40 mg PO DAILY [facility] Last Admin: 07/10/22 08:06 Dose: 40 mg Hydromorphone HCl (Hydromorphone Hcl 0.5 Mg/0.5 Ml Syringe) 0.5 mg IVPUSH Q3H PRN; Protocol PRN Reason: Pain, Severe (Pain Scale 7-10) Dextrose/Lactated Ringer's (D5lr) 1,000 mls @ 125 mls/hr IVCONT .Q8H [facility] Last Admin: 07/10/22 11:39 Dose: 125 mls/hr Piperacillin Sod/Tazobactam (Sod 3.375 gm/ Sodium Chloride) 50 mls @ 100 mls/hr IV Q6H [facility] Last Admin: 07/10/22 11:38 Dose: 100 mls/hr Loratadine (Loratadine 10 Mg Tablet) 10 mg PO BEDTIME [facility] Ondansetron HCl (Ondansetron Hcl 4 Mg/2 Ml Vial) 4 mg IVPUSH Q8H PRN PRN Reason: Nausea Oxycodone HCl (Oxycodone Hcl Immed Release 5 Mg Tablet) 5 mg PO Q6H PRN PRN Reason: Pain, Moderate (Pain Scale 4-6 Last Admin: 07/10/22 04:35 Dose: 5 mg Pharmacy Consult (Consult Rx Perform Med Rec) 1 each MISCELLANE ONCE PRN PRN Reason: Consult order Pravastatin Sodium (Pravastatin Sodium 20 Mg Tablet) 20 mg PO BEDTIME [facility] Sodium Chloride (0.9 % Sodium Chloride Flush 3 Ml Syringe) 3 ml IVFLUSH QSHIFT [facility] Last Admin: 07/10/22 08:07 Dose: Not Given Trazodone HCl (Trazodone Hcl 50 Mg Tablet) 50 mg PO BEDTIME PRN PRN Reason: Insomnia Last Admin: 07/09/22 22:51 Dose: 50 mg Zolpidem Tartrate (Zolpidem Tartrate 5 Mg Tablet) 5 mg PO BEDTIME PRN PRN Reason: Insomnia Last Admin: 07/09/22 22:51 Dose: 5 mg Home Medications Medication Instructions Recorded Confirmed Last Taken Type albuterol sulfate 90 mcg/actuation 2 puff PO Q4H PRN dyspnea 09/14/21 07/09/22 Unknown History aerosol inhaler fluoxetine 20 mg capsule 40 mg PO DAILY 09/14/21 07/09/22 07/09/22 07:00 History pravastatin 20 mg tablet 20 mg PO BEDTIME 09/14/21 07/09/22 07/08/22 History trazodone 50 mg tablet 50 mg PO BEDTIME PRN Insomnia 09/14/21 07/09/22 07/08/22 History loratadine 10 mg tablet 10 mg PO BEDTIME 07/09/22 07/09/22 07/08/22 History losartan 25 mg tablet 50 mg PO BEDTIME 07/09/22 07/09/22 07/08/22 History Physical Exam Vital Signs and Narrative: Vital Signs: Last Vital Signs Temp 98.0 F 07/10/22 08:00 Pulse 67 07/10/22 08:00 Resp 16 07/10/22 08:00 BP 121/68 07/10/22 08:00 Pulse Ox 96 07/10/22 08:00 O2 Del Method Room Air 07/10/22 08:00 BMI result Body Mass Index 30.9 Constitutional - Awake and Alert, No apparent distress Eyes - PERRLA, EOMI Cardiovascular - S1S2, RRR, No edema Respiratory - Normal lung expansion, Normal respiratory effort, No respiratory distress, CTA bilaterally Gastrointestinal - moderate ttp RLQ without rebound or guarding. ND; +BS Extremities - no calf tenderness bilaterally, no swelling Musculoskeletal - Normal inspection, normal ROM Skin - Warm/Dry Neurological - Alert & oriented x3 Psychological - Appropriate affect Results Labs 07/10/22 05:22 07/10/22 05:22 Labs: Laboratory Results - last 24 hr 07/09/22 07/09/22 07/09/22 15:23 15:23 15:23 MCV 89.1 MCH 29.5 MCHC 33.1 RDW 12.8 Plt Count 300 MPV 10.9 Immature Gran % (Auto) 0.1 Neut % (Auto) 56.7 Lymph % (Auto) 25.4 [place] % (Auto) 9.6 Eos % (Auto) 7.4 H Baso % (Auto) 0.8 Lymph # (Auto) 2.1 [place] # (Auto) 0.8 Eos # (Auto) 0.6 H Baso # (Auto) 0.1 Abs Immat Gran (auto) 0.01 Absolute Neuts (auto) 4.7 Absolute Nucleated RBC 0.000 Nucleated RBC % (auto) 0.0 ESR PT 14.8 H INR 1.3 H Anion Gap 12 Estim Creat Clear Calc 93.7 Estimated GFR > 60 Random Glucose 138 H Lactic Acid Calcium 9.6 D Magnesium 2.1 Total Bilirubin 0.4 AST 9 ALT 17 Alkaline Phosphatase 81 C-Reactive Protein 3.26 H Total Protein 6.9 Albumin 4.4 Lipase 38 Urine Color Urine Appearance Urine pH Ur Specific [place] Urine Protein Urine Glucose (UA) Urine Ketones Urine Blood Urine Nitrite Ur Leukocyte Esterase Urine RBC Urine WBC Ur Squamous Epith Cells Urine Bacteria Hyaline Casts Influenza Type A (PCR) Influenza Type B (PCR) RSV RNA Qual (PCR) SARS-CoV-2 RNA (RT-PCR) 07/09/22 07/09/22 07/09/22 15:23 15:23 15:23 MCV MCH MCHC RDW Plt Count MPV Immature Gran % (Auto) Neut % (Auto) Lymph % (Auto) [place] % (Auto) Eos % (Auto) Baso % (Auto) Lymph # (Auto) [place] # (Auto) Eos # (Auto) Baso # (Auto) Abs Immat Gran (auto) Absolute Neuts (auto) Absolute Nucleated RBC Nucleated RBC % (auto) ESR 10 PT INR Anion Gap Estim Creat Clear Calc Estimated GFR Random Glucose Lactic Acid Calcium Magnesium Total Bilirubin AST ALT Alkaline Phosphatase C-Reactive Protein Total Protein Albumin Lipase Urine Color Yellow Urine Appearance Clear Urine pH 6.0 Ur Specific [place] 1.020 Urine Protein Negative Urine Glucose (UA) Negative Urine Ketones Negative Urine Blood Small (1+) H Urine Nitrite Negative Ur Leukocyte Esterase Negative Urine RBC 6-10 H Urine WBC 0-5 Ur Squamous Epith Cells 0-2 Urine Bacteria None Seen Hyaline Casts 0-2 Influenza Type A (PCR) NEGATIVE Influenza Type B (PCR) NEGATIVE RSV RNA Qual (PCR) NEGATIVE SARS-CoV-2 RNA (RT-PCR) NEGATIVE 07/09/22 07/10/22 07/10/22 17:27 05:22 05:22 MCV 89.7 MCH 29.1 MCHC 32.4 RDW 12.8 Plt Count 267 MPV 11.2 Immature Gran % (Auto) 0.4 Neut % (Auto) 64.2 Lymph % (Auto) 18.8 L [place] % (Auto) 9.5 Eos % (Auto) 6.5 H Baso % (Auto) 0.6 Lymph # (Auto) 1.7 [place] # (Auto) 0.9 Eos # (Auto) 0.6 H Baso # (Auto) 0.1 Abs Immat Gran (auto) 0.04 H Absolute Neuts (auto) 5.8 Absolute Nucleated RBC 0.000 Nucleated RBC % (auto) 0.0 ESR PT INR Anion Gap 12 Estim Creat Clear Calc 100.4 Estimated GFR > 60 Random Glucose 129 H Lactic Acid 0.9 Calcium 9.1 Magnesium Total Bilirubin AST ALT Alkaline Phosphatase C-Reactive Protein Total Protein Albumin Lipase Urine Color Urine Appearance Urine pH Ur Specific [place] Urine Protein Urine Glucose (UA) Urine Ketones Urine Blood Urine Nitrite Ur Leukocyte Esterase Urine RBC Urine WBC Ur Squamous Epith Cells Urine Bacteria Hyaline Casts Influenza Type A (PCR) Influenza Type B (PCR) RSV RNA Qual (PCR) SARS-CoV-2 RNA (RT-PCR) Imaging Radiologist's Impressions: Impressions Abdomen/Pelvis CT 07/09/22 15:00 IMPRESSION: 1. Acute appendicitis without evidence for perforation or abscess formation. 2. Cholelithiasis without evidence for acute cholecystitis. 3. Nonobstructing left upper pole intrarenal calculus. 4. Mild sigmoid diverticulosis without evidence for acute diverticulitis. 5. Small fat-containing right inguinal hernia without associated abnormality. Chest X-Ray 07/09/22 17:50 IMPRESSION: No active cardiopulmonary disease. Assessment and Plan (1) Acute appendicitis: Status: Acute Plan 62-year-old male with history of paroxysmal atrial fibrillation anticoagulated with Eliquis, hypertension, hyperlipidemia, mood disorder, and mild persistent asthma admitted to General surgery for management of acute appendicitis with consult placed to hospitalist service for routine medical management. #Acute appendicitis -plan per general surgery- current plan to continue conservative management -Will continue holding eliquis #Paroxysmal atrial fibrillation -Therapeutic lovenox in place of eliquis for anticoagulation in case of surgery -Continue diltiazem -Resume eliquis on discharge #HTN -continue home meds #HLD -continue statin Thank you for allowing me to participate in this consult. Signing off at this time. Please do not hesitate to call for further questions. Time Spent With Patient Time: Total time managing care of this patient today ____ minutes.
[2022-07-10 13:50] LABS: Hematocrit 36.9 % (42.0-52.0); Hemoglobin 12.3 g/dl (14.0-18.0); Mean Corpuscular HGB Conc 33.3 g/dl (31.0-36.0); Mean Corpuscular Hemoglobin 29.9 pg (27.0-33.0); Mean Corpuscular Volume 89.6 fL (80.0-98.0); Mean Platelet Volume 11.1 fL (9.4-12.4); Platelet Count 254 X10*3/uL (160-400); Red Blood Count 4.12 X10*6/uL (4.60-5.80); Red Cell Distribution Width 12.8 % (11.0-16.0); White Blood Count 7.2 X10*3/uL (4.8-10.8)
[2022-07-10] MEDS: Enoxaparin Sodium 100 MG/ML SYRINGE 90 MG SUBCUT (13:53)
[2022-07-10 13:55] LABS: INTERNATIONAL NORM RATIO 1.2 (0.9-1.1)
[2022-07-10 13:58] LABS: Partial Thromboplastin Time 29.1 SEC (26.0-36.4)
[2022-07-10 15:31] VITALS: BP 118/71; PULSE 64; RESP 17; TEMP 36.9; O2SAT 96
--- NOTE | 2022-07-10 17:23 | ECG_ITS ---
Test Reason : MED CLEARENCE Blood Pressure : / mmHG Vent. Rate : 072 BPM Atrial Rate : 072 BPM P-R Int : 166 ms QRS Dur : 092 ms QT Int : 386 ms P-R-T Axes : 061 003 003 degrees QTc Int : 422 ms Normal sinus rhythm Normal ECG When compared with ECG of 02-JUL-2021 13:58, No significant change was found Referred By: Jia Taveras Electronically Signed By:ÁNGEL PEREZ
[2022-07-10] MEDS: Loratadine 10 MG TABLET PO (20:35)
[2022-07-10] MEDS: Pravastatin Sodium 20 MG TABLET PO (20:35)
[2022-07-10] MEDS: traZODone HCL 50 MG TABLET PO (20:43)
[2022-07-11] VITALS: BP 120/77; PULSE 72; RESP 18; TEMP 37.2; O2SAT 95
[2022-07-11] MEDS: Enoxaparin Sodium 100 MG/ML SYRINGE 90 MG SUBCUT (00:37)
[2022-07-11] MEDS: Dextrose 5 % and Lactated Ring 1,000 ML 60 ML IVCONT (00:37)
[2022-07-11] MEDS: Piperacillin Sodium/Tazobactam 3.375 GM in 0.9 % Sodium Chloride 50 ML IV (05:18)
[2022-07-11 06:54] LABS: Hematocrit 39.5 % (42.0-52.0); Hemoglobin 13.3 g/dl (14.0-18.0); Mean Corpuscular HGB Conc 33.7 g/dl (31.0-36.0); Mean Corpuscular Hemoglobin 30.2 pg (27.0-33.0); Mean Corpuscular Volume 89.6 fL (80.0-98.0); Mean Platelet Volume 11.6 fL (9.4-12.4); Platelet Count 287 X10*3/uL (160-400); Red Blood Count 4.41 X10*6/uL (4.60-5.80); Red Cell Distribution Width 12.8 % (11.0-16.0)
[2022-07-11 07:10] VITALS: BP 150/79; PULSE 70; RESP 18; TEMP 36.1; O2SAT 96
--- NOTE | 2022-07-11 07:47 | P.PNGS_ITS ---
Subjective Subjective Date of Service: 07/11/22 Interval history: Patient feels improved. Denies abdominal pain. Would like to go home. Tolerating liquids without nausea or vomiting. Physical Exam Vital Signs: Vital Signs: Last Vital Signs Temp 97 F 07/11/22 07:10 Pulse 70 07/11/22 07:10 Resp 18 07/11/22 07:10 BP 150/79 H 07/11/22 07:10 Pulse Ox 96 07/11/22 07:10 O2 Del Method Room Air 07/11/22 07:10 BMI result Body Mass Index 30.9 Const: General: comfortable Nutritional Appearance: well nourished Orientation/consciousness: patient oriented x3 Limitations: no limitations Resp: Effort & Inspection: normal respiratory effort GI: Inspection: Yes normal to inspection Palpation (GI): Soft to palpation, nontender, no guarding and not rigid Percussion: Yes normal to percussion Auscultation: normal bowel sounds Neuro: General: patient oriented x3 Extrem: General: Yes normal to inspection Objective Data Active Medications Acetaminophen (Acetaminophen 325 Mg Tablet) 650 mg PO QID PRN PRN Reason: headache, temp > 101 Apixaban (Apixaban 5 Mg Tablet) 5 mg PO BID [facility] Diltiazem HCl (Diltiazem Hcl Cd 120 Mg Cap.Er.Deg) 120 mg PO DAILY [facility]; Protocol Last Admin: 07/10/22 08:06 Dose: 120 mg Documented By: KARTHIKEYAN Fluoxetine HCl (Fluoxetine Hcl 20 Mg Capsule) 40 mg PO DAILY [facility] Last Admin: 07/10/22 08:06 Dose: 40 mg Documented By: KARTHIKEYAN Hydromorphone HCl (Hydromorphone Hcl 0.5 Mg/0.5 Ml Syringe) 0.5 mg IVPUSH Q3H PRN; Protocol PRN Reason: Pain, Severe (Pain Scale 7-10) Dextrose/Lactated Ringer's (D5lr) 1,000 mls @ 60 mls/hr IVCONT .[id number] [facility] Last Admin: 07/11/22 00:37 Dose: 60 mls/hr Documented By: JODI Piperacillin Sod/Tazobactam (Sod 3.375 gm/ Sodium Chloride) 50 mls @ 100 mls/hr IV Q6H [facility] Last Infusion: 07/11/22 06:04 Dose: 0 mls/hr Documented By: JODI Loratadine (Loratadine 10 Mg Tablet) 10 mg PO BEDTIME [facility] Last Admin: 07/10/22 20:35 Dose: 10 mg Documented By: JODI Ondansetron HCl (Ondansetron Hcl 4 Mg/2 Ml Vial) 4 mg IVPUSH Q8H PRN PRN Reason: Nausea Oxycodone HCl (Oxycodone Hcl Immed Release 5 Mg Tablet) 5 mg PO Q6H PRN PRN Reason: Pain, Moderate (Pain Scale 4-6 Last Admin: 07/10/22 20:43 Dose: 5 mg Documented By: JODI Pharmacy Consult (Consult Rx Perform Med Rec) 1 each MISCELLANE ONCE PRN PRN Reason: Consult order Pravastatin Sodium (Pravastatin Sodium 20 Mg Tablet) 20 mg PO BEDTIME [facility] Last Admin: 07/10/22 20:35 Dose: 20 mg Documented By: JODI Sodium Chloride (0.9 % Sodium Chloride Flush 3 Ml Syringe) 3 ml IVFLUSH QSHIFT [facility] Last Admin: 07/11/22 00:34 Dose: Not Given Documented By: LUIS Non-Admin Reason: IV Running Trazodone HCl (Trazodone Hcl 50 Mg Tablet) 50 mg PO BEDTIME PRN PRN Reason: Insomnia Last Admin: 07/10/22 20:43 Dose: 50 mg Documented By: JODI Zolpidem Tartrate (Zolpidem Tartrate 5 Mg Tablet) 5 mg PO BEDTIME PRN PRN Reason: Insomnia Last Admin: 07/09/22 22:51 Dose: 5 mg Documented By: JHONPEI Labs 07/11/22 05:24 07/10/22 05:22 Labs: Laboratory Results - last 24 hr 07/10/22 07/10/22 07/11/22 13:35 13:35 05:24 MCV 89.6 89.6 MCH 29.9 30.2 MCHC 33.3 33.7 RDW 12.8 12.8 Plt Count 254 287 MPV 11.1 11.6 Absolute Nucleated RBC 0.000 0.000 Nucleated RBC % (auto) 0.0 0.0 PT 14.0 H INR 1.2 H APTT 29.1 Microbiology Microbiology Results: Microbiology 07/09/22 17:38 Blood Culture - Preliminary Blood - Venous No growth after 24 hours. 07/09/22 17:27 Blood Culture - Preliminary Blood - Venous No growth after 24 hours. Procedures Date of Service Date of Service: 07/11/22 Progress Note: A&P Assessment and plan (1) Acute appendicitis: Status: Acute Plan 62-year-old male admitted with abdominal pain right lower quadrant. Abdominal pain has now improved and he is tolerating liquids. He was found to have early appendicitis treated non operatively with antibiotics. Will advance to regular diet and discharged to home. I recommended follow-up in the office in 1 week. We will continue antibiotics for another 10 days. He was instructed to call the office or return to the emergency department should the pain return. We discussed possible elective appendectomy in the future and will discuss this further in the office. Will restart oral anticoagulation and stop Lovenox. Time Spent With Patient Time: Total time managing care of this patient today ____ minutes. Quality Stroke Does the patient have a stroke diagnosis?: No VTE Prior VTE?: No VTE Risk Level:: Surgical - moderate VTE Device Contraindication: N/A - Device Ordered VTE Drug Contraindication: Treatment Not Indicated
[2022-07-11] MEDS: Apixaban 5 MG TABLET PO (07:58)
[2022-07-11] MEDS: dilTIAZem HCL CD 120 MG CAP.ER.DEG PO (07:58)
[2022-07-11] MEDS: FLUoxetine HCl 20 MG CAPSULE 40 MG PO (07:58)
--- NOTE | 2022-07-11 08:32 | MHC.CM.PN ---
PATIENT IS DC HOME - SELF CARE
--- NOTE | 2022-07-11 09:48 | P.DS_ITS ---
DS: Providers Provider Date of Service: 07/11/22 Date of admission: 07/09/22 18:35 Date of discharge: 07/11/22 Primary care physician: Jessica Pearson MD Attending physician on admission: Daniele Carroll Consults: 07/09/22 18:34 Consult to Hospitalist Routine Consulting Provider: Hospitalist Reason For Exam: early acute appendicitis, arrhythmia on anticoagu DS: Diagnosis Discharge Diagnosis (1) Acute appendicitis: Status: Acute DS: Summary Hospital Course Hospital Course: HPI AT ADMISSION: Omari aLnda is a 62 year old male presenting with complaints of abdominal pain in the right lower quadrant which began approximately 3 days ago and gradually increased in severity. ? He reports a similar episode several months ago which resolved spontaneously without the need for any medical assistance.? He denies nausea, vomiting, fever, or chills.? He did have some pain with ambulation denies bloody stool, hematuria, diarrhea or constipation.? Workup in the emergency department revealed normal WBC.? CT abdomen and pelvis however revealed a thickened appendix suggestive of appendicitis without evidence of perforation.? HOSPITAL COURSE: He was admitted to the surgical service for further management of the acute uncomplicated appendicitis. Patient is on anticoagulation for his arrhythmia.?As he appeared to have early appendicitis with mild symptoms it was recommended to continue non operative management with IV antibiotics and bowel rest.? His oral anticoagulation was held for possible surgical intervention.? Hospitalist consultation?was requested.?Possibility of needing laparoscopic or possible open appendectomy during this admission was discussed if no further improvement or as an elective procedure if he improves.? He expressed under standing and agreed with the plan. The patient improved with nonoperative measures. His RLQ abdominal pain and tenderness improved. His WBC count remained normal. His diet was advanced to clear liquids and then solid food. He felt improved without any abd pain or tenderness. His home eliquis was resumed and lovenox discontinued. He felt ready for discharge. He was discharged to home on 07/11/22 on a course of Augmentin for 10 days. He is to follow up in the office in 1 week. Status at Discharge Functional status at discharge: independent ambulation Overall status at discharge: patient is progressing back to baseline Time Spent with Patient Time attestation: Total time managing care of this patient today ____ minutes. Discharge coordination time: Less than 30 minutes Quality: Safe Use of Opioids Does Pt have an Active Cancer Diagnosis on the Problem List?: No Quality: Stroke Does the patient have a stroke diagnosis?: No Physical Exam Vital Signs: Vital Signs: Last Vital Signs Temp 97 F 07/11/22 07:10 Pulse 70 07/11/22 07:10 Resp 18 07/11/22 07:10 BP 150/79 H 07/11/22 07:10 Pulse Ox 96 07/11/22 07:10 O2 Del Method Room Air 07/11/22 07:10 BMI result Body Mass Index 30.9 Const: General: comfortable, no acute distress and alert Orientation/consciousness: patient oriented x3 Resp: Effort & Inspection: normal respiratory effort GI: Inspection: No distended Palpation (GI): Soft to palpation, nontender, no guarding and not rigid Skin: General skin exam: no rashes or lesions noted Neuro: General: patient oriented x3 DS: Data Data Completed and Pending Labs on day of discharge: Laboratory Results - last 24 hr 07/10/22 07/10/22 07/11/22 13:35 13:35 05:24 WBC 7.2 8.0 RBC 4.12 L 4.41 L Hgb 12.3 L 13.3 L Hct 36.9 L 39.5 L MCV 89.6 89.6 MCH 29.9 30.2 MCHC 33.3 33.7 RDW 12.8 12.8 Plt Count 254 287 MPV 11.1 11.6 Absolute Nucleated RBC 0.000 0.000 Nucleated RBC % (auto) 0.0 0.0 PT 14.0 H INR 1.2 H APTT 29.1 Preliminary micro results at discharge 07/09/22 17:38 Blood Culture - Preliminary Blood - Venous No growth after 24 hours. 07/09/22 17:27 Blood Culture - Preliminary Blood - Venous No growth after 24 hours. Discharge Plan Discharge Patient Disposition: Home, Self-Care Discharge Diagnosis: Acute appendicitis Referrals: Daniele Carroll MD [Physician] - 1 Week Jessica Pearson MD [Primary Care Provider] - 1 Week Discharge Medications: New amoxicillin-pot clavulanate [Augmentin] 500-125 mg tablet 1 tab PO Q8H Qty: 30 0RF Continued Eliquis 5 mg tablet 5 mg PO BID Qty: 60 0RF diltiazem HCl 120 mg capsule,extended release 24hr 120 mg PO DAILY Qty: 30 0RF losartan 25 mg tablet 50 mg PO BEDTIME loratadine 10 mg tablet 10 mg PO BEDTIME fluoxetine 20 mg capsule 40 mg PO DAILY trazodone 50 mg tablet 50 mg PO BEDTIME PRN (Reason: Insomnia) pravastatin 20 mg tablet 20 mg PO BEDTIME albuterol sulfate 90 mcg/actuation HFA aerosol inhaler 2 puff PO Q4H PRN (Reason: dyspnea) Discharge Orders: Discharge Order (Routine); Ordered 07/11/22 Ordered By: Daniele Carroll Diet: Advance to usual diet Activity on Discharge: As tolerated Stand Alone Forms: Patient Portal Discharge page Care Plan Goals: Return to normal activity and diet Health Concerns: abdominal pain in the right lower abdomen Plan of Treatment: Bowel rest and antibiotics Assessment: Early acute appendicitis
--- NOTE | 2022-07-11 11:25 | HO.PM.IMPN ---
Subjective Subjective Date of Service: 07/11/22 Physical Exam Vital Signs: Vital Signs: Last Vital Signs Temp 97 F 07/11/22 07:10 Pulse 70 07/11/22 07:10 Resp 18 07/11/22 07:10 BP 150/79 H 07/11/22 07:10 Pulse Ox 96 07/11/22 07:10 O2 Del Method Room Air 07/11/22 07:10 BMI result Body Mass Index 30.9 Objective Data Labs 07/11/22 05:24 07/10/22 05:22 Labs: Laboratory Results - last 24 hr 07/10/22 07/10/22 07/11/22 13:35 13:35 05:24 MCV 89.6 89.6 MCH 29.9 30.2 MCHC 33.3 33.7 RDW 12.8 12.8 Plt Count 254 287 MPV 11.1 11.6 Absolute Nucleated RBC 0.000 0.000 Nucleated RBC % (auto) 0.0 0.0 PT 14.0 H INR 1.2 H APTT 29.1 Microbiology Microbiology Results: Microbiology 07/09/22 17:38 Blood Culture - Preliminary Blood - Venous No growth after 24 hours. 07/09/22 17:27 Blood Culture - Preliminary Blood - Venous No growth after 24 hours. Assessment and Plan Time Spent With Patient Time: Total time managing care of this patient today ____ minutes. Quality Stroke Does the patient have a stroke diagnosis?: No VTE Prior VTE?: No VTE Risk Level:: Surgical - moderate VTE Device Contraindication: N/A - Device Ordered VTE Drug Contraindication: Treatment Not Indicated
--- NOTE | 2022-07-11 11:30 | P.HPHOSP_ITS ---
[facility] Medical History (Updated 07/10/22 @ 12:08 by GERMANIA Westfall) HTN (hypertension) Hyperlipidemia Mood disorder Paroxysmal atrial fibrillation Social History Household Members: Family Alcohol intake: current Alcohol intake frequency: holidays/special occasions only Patient Tobacco Use Status: Never used Tobacco service: No Current occupational status: retired Meds Allergies Allergy/AdvReac Type Severity Reaction Status Date / Time No Known Allergies Allergy Verified 07/02/22 09:55 Home Medications Medication Instructions Recorded Confirmed Last Taken Type albuterol sulfate 90 mcg/actuation 2 puff PO Q4H PRN dyspnea 09/14/21 07/09/22 Unknown History aerosol inhaler fluoxetine 20 mg capsule 40 mg PO DAILY 09/14/21 07/09/22 07/09/22 07:00 History pravastatin 20 mg tablet 20 mg PO BEDTIME 09/14/21 07/09/22 07/08/22 History trazodone 50 mg tablet 50 mg PO BEDTIME PRN Insomnia 09/14/21 07/09/22 07/08/22 History loratadine 10 mg tablet 10 mg PO BEDTIME 07/09/22 07/09/22 07/08/22 History losartan 25 mg tablet 50 mg PO BEDTIME 07/09/22 07/09/22 07/08/22 History Physical Exam Vital Signs and Narrative: Vital Signs: Last Vital Signs Temp 97 F 07/11/22 07:10 Pulse 70 07/11/22 07:10 Resp 18 07/11/22 07:10 BP 150/79 H 07/11/22 07:10 Pulse Ox 96 07/11/22 07:10 O2 Del Method Room Air 07/11/22 07:10 BMI result Body Mass Index 30.9 Results Labs 07/11/22 05:24 07/10/22 05:22 Labs: Laboratory Results - last 24 hr 07/10/22 07/10/22 07/11/22 13:35 13:35 05:24 MCV 89.6 89.6 MCH 29.9 30.2 MCHC 33.3 33.7 RDW 12.8 12.8 Plt Count 254 287 MPV 11.1 11.6 Absolute Nucleated RBC 0.000 0.000 Nucleated RBC % (auto) 0.0 0.0 PT 14.0 H INR 1.2 H APTT 29.1 Assessment and Plan Time Spent With Patient Time: Total time managing care of this patient today ____ minutes. Quality Stroke Does the patient have a stroke diagnosis?: No VTE Prior VTE?: No VTE Risk Level:: Surgical - moderate VTE Device Contraindication: N/A - Device Ordered VTE Drug Contraindication: Treatment Not Indicated
== END 2022-07-11 11:03 | disposition home or self-care (01) ==
LOC: HO.ED 17:20 → HO.EDOVER 18:36 → HO.S3 07-10 01:36
PROVIDERS: Physician Assistant; Physician Assistant Medical; Admitting Provider Surgery; Emergency Provider Emergency Medicine Emergency Medical Services; PCP Internal Medicine; Visit Provider Surgery
DX: K35.80 Unspecified acute appendicitis (principal); I49.9 Cardiac arrhythmia, unspecified; R10.31 Right lower quadrant pain; Z79.01 Long term (current) use of anticoagulants; Z20.822 Contact with and (suspected) exposure to COVID-19
CPT/HCPCS: 0241U; 36415; 71046; 74176; 80048; 80053; 81001; 83605; 83690; 83735; 85025; 85027; 85610; 85652; 85730; 86140; 87040; 93005; 96365; 96366; 96367; 96368; 96372; 99221; 99285; J1650; J2543

== ENCOUNTER → 2022-07-16 09:44 | Outpatient (BNVA) | payer OTHER, SELFPAY | PROVIDERS: PCP Internal Medicine; Visit Provider Surgery | DX: K35.80 Unspecified acute appendicitis (principal) | CPT/HCPCS: 99212 ==

== ENCOUNTER 2022-07-31 05:52 | Day surgery (SDC) | payer OTHER, SELFPAY ==
[2022-07-26 10:32] VITALS: BMI 29.9
--- NOTE | 2022-07-30 09:40 | HO.ANESPROP2 ---
HPI - Anesthesia Eval Consult details Narrative: 62yo M for Appendectomy Laparoscopic possible open Eliquis for afib PMFSH Active Problems Active Problems: All Active Problems (Updated 07/30/22 @ 08:16 by Aminta Slater RN) Hyperlipidemia (Acute) HTN (hypertension) (Acute) Past Medical History Medical History (Updated 07/30/22 @ 08:16 by Aminta Slater RN) Acute appendicitis HTN (hypertension) Hyperlipidemia Mood disorder Paroxysmal atrial fibrillation Sleep apnea Family History Family History Mother Esophageal cancer Surgical History Surgical History History of back surgery Social History Social History Household Members: Family Alcohol intake: current Alcohol intake frequency: holidays/special occasions only Patient Tobacco Use Status: Never used Tobacco Second Hand Smoke Exposure: No service: No Current occupational status: retired [employer] Allergies Allergy/AdvReac Type Severity Reaction Status Date / Time No Known Allergies Allergy Verified 07/16/22 10:16 Home Medications Medication Instructions Recorded Confirmed Last Taken Type albuterol sulfate 90 mcg/actuation 2 puff PO Q4H PRN dyspnea 09/14/21 07/26/22 Unknown History aerosol inhaler fluoxetine 20 mg capsule 40 mg PO DAILY 09/14/21 07/26/22 07/09/22 07:00 History pravastatin 20 mg tablet 20 mg PO BEDTIME 09/14/21 07/26/22 07/08/22 History trazodone 50 mg tablet 50 mg PO BEDTIME PRN Insomnia 09/14/21 07/26/22 07/08/22 History loratadine 10 mg tablet 10 mg PO BEDTIME 07/09/22 07/26/22 07/08/22 History losartan 25 mg tablet 50 mg PO BEDTIME 07/09/22 07/26/22 07/08/22 History Exam Exam Date and Time: July 30, 2022 0940 Height,Weight and Vital Signs: Height 5 ft 8 in Weight 89.358 kg Pertinent Lab Results Pertinent Lab Results: Laboratory Tests 07/10/22 07/11/22 05:22 05:24 WBC 8.0 Hgb 13.3 L Hct 39.5 L Plt Count 287 Sodium 142 Potassium 4.5 Chloride 108 Carbon Dioxide 27 BUN 15 Creatinine 0.84 Narrative Narrative: EKG 06/2022 NSR @ 72 ECHO 2021 Concentric hypertrophy of LV Nml regional wall motion EF 60% Indeterminate diastolic dysfunction Mild mitral insufficiency Trace tricuspid insufficiency No pulm htn Nuc Stress 2021 1. Nml exercise perfusion stress 2. No perfusion defect ot suggest ischemia or infarct 3. Nml LV size and systolic function with LVEF 70% Assessment and Plan Assessment Anesthesia Assessment: Chart Reviewed
[2022-07-31] VITALS (7 sets, daily range): BP systolic 114–137; BP diastolic 65–78; PULSE 70–75; RESP 10–16; TEMP 36.3–36.6; O2SAT 95–99
[2022-07-31] MEDS: Lactated Ringers 1,000 ML 100 ML IVCONT (06:51)
--- NOTE | 2022-07-31 06:51 | PC.NURSE ---
patient stated he is a Jehovah witness and wishes to not receive blood products. blood refusal signed with due diligence coordinator Cooper craig.
--- NOTE | 2022-07-31 07:21 | MHC.SHP ---
Pre-Procedural Eval Section A Date of Service: 07/31/22 The patient is an INPATIENT: No Changes since office visit: Yes Patient answered all questions; No Cold of Flu in the past 2 weeks, No New Medical Problems and No Changes in Medication The History & Physical has been completed within 30 days and I have reviewed it.: Yes Section B Chief Complaint: Unspecified acute appendicitis Allergies: Allergies Allergy/AdvReac Type Severity Reaction Status Date / Time No Known Allergies Allergy Verified 07/16/22 10:16 Plan Diagnosis/Plan: Unchanged I have reviewed the history and physical and performed a pertinent physical examination on my patient. No changes have occurred unless specified. Time Spent With Patient Time: Total time managing care of this patient today ____ minutes.
--- NOTE | 2022-07-31 07:48 | P.OP_ITS ---
Operative Note Operative Note Date of Service: 07/31/22 Narrative: Preoperative diagnosis: Acute appendicitis Postoperative diagnosis: Same Procedure: Laparoscopic appendectomy Surgeon: Daniele Carroll MD [employer] Maker:Rebeca Linton PA-C Anesthesia: General endotracheal Indications for procedure: 62-year-old male patient with a recent history of acute appendicitis, treated non operatively with IV antibiotics followed by oral antibiotics. He presents today for an interval appendectomy. On examination does have some Minor tenderness in the right lower quadrant without rebound or guarding. Operative findings: mildly inflamed appendix at the tip with no perforation Specimen: appendix Estimated blood loss: less than 2 mL Complications: non Procedure details: Patient was brought to the OR and placed in a supine position. After administering general anesthesia the patient's abdomen was prepped with ChloraPrep and draped in a sterile fashion. A surgical time-out was called and consent confirmed. Patient received preoperative antibiotics and Venodyne boots were in place. Local anesthesia consisting of 0.5% Sensorcaine with epinephrine was infiltrated in periumbilical region. A 5 mm incision was made below the umbilicus and carried down through subcutaneous tissue. A Veress needle was then inserted while elevating abdominal cavity with towel clips. After a positive drop test the abdomen was insufflated to a pressure of 15 mm of mercury. The Veress needle was removed and a 5 mm trocar inserted. The camera was then inserted in the abdomen explored. A 2nd 5 mm trocars placed in the lower midline. A 12 mm trocar was then placed in the left lower quadrant. The patient was then placed in a Trendelenburg position and rotated to the left. The appendix was identified in the right lower quadrant and brought up using blunt dissecting clamps. The mesentery of the appendix was then divided using the LigaSure. The appendiceal artery was cauterized and divided using the LigaSure. Dissection was continued down to the base of the cecum. An Endo-DAYA stapler with a purple reload was then used to divide the appendix at the base with the cecum. The appendix was then placed in Endo-Catch bag and brought out through the left lower quadrant incision. The abdomen was then irrigated with saline solution and suctioned dry. Wounds were checked for hemostasis. CO2 was then evacuated from the abdominal cavity and all trocars removed. Fa scia was closed in the left lower quadrant incision using a [id number] 0 Polysorb suture. Skin was closed at all incisions using a subcuticular 4-0 Polysorb suture. Steri-Strips 2 x 2 gauze and Tegaderm were then applied. The patient tolerated the procedure well. Sponge, instrument, needle counts reported as correct. The patient was transferred to PACU in stable condition.
[2022-07-31] MEDS: Acetaminophen 1,000 MG/100 ML PIGGYBACK 400 MG IV (09:07)
[2022-07-31] MEDS: oxyCODONE HCl Immed Release 5 MG TABLET PO (09:25)
== END 2022-07-31 10:02 | disposition home or self-care (01) ==
PROVIDERS: PCP Internal Medicine; Visit Provider Surgery
PROC: 0DTJ4ZZ Resection of Appendix, Percutaneous Endoscopic Approach (ICD-10-PCS; CPT 44970; principal; 2022-07-31 07:30)
DX: K35.80 Unspecified acute appendicitis (principal); I10 Essential (primary) hypertension; E78.5 Hyperlipidemia, unspecified; I48.0 Paroxysmal atrial fibrillation; F39 Unspecified mood [affective] disorder; Z79.01 Long term (current) use of anticoagulants; Z79.899 Other long term (current) drug therapy
CPT/HCPCS: 44970; 88304; J0131; J0330; J1100; J2250; J2405; J2550; J3010

== ENCOUNTER → 2022-08-08 13:40 | Outpatient (BNVA) | payer OTHER, SELFPAY | PROVIDERS: PCP Internal Medicine; Visit Provider Surgery | DX: Z90.49 Acquired absence of other specified parts of digestive tract (principal) | CPT/HCPCS: 99212 ==

== ENCOUNTER → 2022-09-05 09:53 | Outpatient (BNVA) | payer OTHER, SELFPAY | PROVIDERS: PCP Internal Medicine; Visit Provider Surgery | DX: Z90.49 Acquired absence of other specified parts of digestive tract (principal) | CPT/HCPCS: 99212 ==

== ENCOUNTER 2022-11-27 07:39 | Day surgery (SDC) | payer OTHER, SELFPAY ==
[2022-11-25 09:35] VITALS: BMI 30.9
[2022-11-27 08:03] VITALS: BP 126/79; PULSE 78; RESP 20; TEMP 36.6; O2SAT 96
--- NOTE | 2022-11-27 08:10 | HO.ANESPROP2 ---
HPI - Anesthesia Eval Consult details Narrative: 62 yo male patient for Colonoscopy PMFSH Active Problems Active Problems: All Active Problems (Updated 11/27/22 @ 08:11 by Melinda Silva MD) Status post laparoscopic appendectomy (Acute) Hyperlipidemia (Acute) HTN (hypertension) (Acute) Asthma- stable. Last used inhalers about 4 months ago BARBARA- CPAP recommended but patient declined Paroxysmal afib. SR today Past Medical History Medical History Acute appendicitis Asthma Diabetes HTN (hypertension) Hyperlipidemia Mood disorder Paroxysmal atrial fibrillation Sleep apnea Family History Family History Mother Esophageal cancer Family history of problems with anesthesia: No Surgical History Surgical History History of back surgery History of laparoscopic appendectomy (07/31/22) Status post laparoscopic appendectomy History of Problems with Anesthesia: Yes (PONV with back surgery ) Social History Social History Household Members: Family Alcohol intake: current Alcohol intake frequency: holidays/special occasions only Patient Tobacco Use Status: Never used Tobacco Second Hand Smoke Exposure: No Use of substances other than those prescribed or required for medical reasons: No Have you been hit, kicked, punched, or otherwise hurt by someone within the past year? If so, by whom?: No Are you DNR?: No Advance Directives: No Advance Directives Information Provided: Yes (brochure mailed) Advance Directives on File: No Recently lost weight without trying: No Eating poorly because of decreased appetite: No Nutrition Risks: No Nutritional Risk service: No Current occupational status: retired [employer] Allergies Allergy/AdvReac Type Severity Reaction Status Date / Time No Known Allergies Allergy Verified 09/05/22 10:11 Home Medications Medication Instructions Recorded Confirmed Last Taken Type albuterol sulfate 90 mcg/actuation 2 puff PO Q4H PRN dyspnea 09/14/21 11/25/22 Unknown History aerosol inhaler fluoxetine 20 mg capsule 40 mg PO DAILY 09/14/21 11/25/22 07/09/22 07:00 History pravastatin 20 mg tablet 20 mg PO BEDTIME 09/14/21 11/25/2207/08/23 History trazodone 50 mg tablet 50 mg PO BEDTIME PRN Insomnia 09/14/21 11/25/22 07/08/22 History loratadine 10 mg tablet 10 mg PO BEDTIME 07/09/22 11/25/22 07/08/22 History losartan 25 mg tablet 50 mg PO BEDTIME 07/09/22 11/25/22 07/08/22 History amitriptyline 25 mg tablet 25 mg PO BEDTIME 11/25/22 11/25/22 Unknown History gabapentin 300 mg capsule 300 mg PO TID 11/25/22 11/25/22 Unknown History olanzapine 2.5 mg tablet 2.5 mg PO BEDTIME 11/25/22 11/25/22 Unknown History Exam Exam Date and Time: November 27, 2022 0810 Height,Weight and Vital Signs: Height 5 ft 8 in Weight 92.079 kg Last Vital Signs Temp 98 F 11/27/22 08:03 Pulse 78 11/27/22 08:03 Resp 20 11/27/22 08:03 BP 126/79 11/27/22 08:03 Pulse Ox 96 11/27/22 08:03 O2 Del Method Room Air 11/27/22 08:03 Airway Mallampati Class: II TM Dist: >3cm Neck ROM: Full Loose/Missing/Broken Teeth: Yes (Missing 2 teeth bottom right back. Denies broken or loose teeth) Heart: RRR Lungs: CTAB Assessment and Plan Assessment Anesthesia Assessment: Anesthesia Plan Discussed and Chart Reviewed Final Anesthetic Review Family History of Problems with Anesthesia: No History of Problems with Anesthesia: Yes (PONV with back surgery ) NPO: Yes ASA Class: III Final Preanesthetic Review: No Changes in Pt Med Stat, Meds/Allgs Chart Reviewed, Consent Obtained/Reviewed and Anes Risks/Benef Reviewed Patient Risk: Intermediate Procedure Risk: Low Assessment/Block/Sedation in SS: Assess/Block/Sedation-SS Anesthetic Plan Anesthetic Plan: MAC: Disposition: Standard PACU
[2022-11-27] MEDS: Lactated Ringers 1,000 ML 100 ML IVCONT (08:33)
--- NOTE | 2022-11-27 09:24 | MHC.SHP ---
Pre-Procedural Eval Section A Date of Service: 11/27/22 Section B Chief Complaint: Encounter for screening for malignant neoplasm Relevant Family History (Specify if Yes): No Relevant Social History: None Present Medications: see Short Stay Collaborative assessment Medical History: Significant History (Acute appendicitis Asthma Diabetes HTN (hypertension) Hyperlipidemia Mood disorder Paroxysmal atrial fibrillation Sleep apnea) History of Previous Operations: Relevant previous surgery/procedure and date(s) (appendectomy, back surgery) Allergies: Allergies Allergy/AdvReac Type Severity Reaction Status Date / Time No Known Allergies Allergy Verified 09/05/22 10:11 Review of Systems Sugical H&P ROS: Negative: Constitution, Cardiovascular, Respiratory, Neurological, Psychiatric, Hem-Onc, Allergic/Immunologic, Gastrointestinal, Genitourinary, Musculoskeletal, Integumentary, Endocrine and Eyes/Ears/Nose/Throat Exam Surgical H&P Exam: Normal: HEENT, Normal: Heart, Normal: Lungs, Normal: Extremities, Normal: Abdomen, Normal: Skin and Normal: Neurological Plan Diagnosis/Plan: Unchanged I have reviewed the history and physical and performed a pertinent physical examination on my patient. No changes have occurred unless specified. Time Spent With Patient Time: Total time managing care of this patient today ____ minutes.
--- NOTE | 2022-11-27 09:25 | W.PM.OPN ---
Operative Note Operative Note Date of Service: 11/27/22 Narrative: Operative Information Procedure Description: Colonoscopy Indication: screening Anesthesia: MAC COLONOSCOPY Instrument: Olympus variable stiffness pediatric scope 190L Colonoscopy Monitoring: Vital signs and clinical assessment, continuous EKG monitoring, Pulse oximetry, Carbon Dioxide monitoring and blood pressure monitoring were done throughout the procedure. Colon withdrawal time was 10 minutes. Procedure: The patient was placed in the left lateral decubitis position and pre-procedure medications were administered. After a digital rectal examination of the ano-rectum, the video colonoscope was inserted into the rectum and advanced through the colon to the cecum/TI. The colonoscope was slowly withdrawn in a retrograde panoramic fashion and the colon mucosa was carefully examined including a retroflexed view of the rectum. Findings and interventions are described below. Procedure Difficulty: easy Findings: Terminal Ileum-normal Cecum:normal Ascending Colon: normal Transverse Colon - 10 mm sessile polyp removed with cold snare Descending Colon:normal Sigmoid Colon: normal Rectum: Retroflexion with medium sized, slightly inflammed internal hemorrhoids, grade I Anorectum - normal Colon preparation: [place] Bowel Preparation Scale Right colon; 2 Transverse colon: 2 Left colon; 2 (0 = Unprepared colon segment with mucosa not seen due to solid stool that cannot be cleared. 1 = Portion of mucosa of the colon segment seen, but other areas of the colon segment not well seen due to staining, residual stool and/or opaque liquid. 2 = Minor amount of residual staining, small fragments of stool and/or opaque liquid, but mucosa of colon segment seen well. 3 = Entire mucosa of colon segment seen well with no residual staining, small fragments of stool or opaque liquid) Impression and Post Procedure Diagnosis: polyp internal hemorrhoids Plan: High fiber diet leaflet Avoid straining at stool, epsom salts and sitz bath, anusol supps or cream Repeat Colonoscopy in 5-7 years due to polyp or earlier if clinically indicated can restart eliquis tomorrow Above findings were reviewed with the patient and relevant handouts were provided if indicated.
[2022-11-27 10:04] VITALS: BP 112/65; PULSE 75; RESP 21; TEMP 36.1; O2SAT 96
[2022-11-27 10:19] VITALS: BP 129/81; PULSE 74; RESP 14; O2SAT 97
[2022-11-27 10:34] VITALS: BP 120/71; PULSE 66; RESP 14; TEMP 36.2; O2SAT 97
== END 2022-11-27 11:20 | disposition home or self-care (01) ==
PROVIDERS: PCP Internal Medicine; Visit Provider Internal Medicine Gastroenterology
PROC: 0DJD8ZZ Inspection of Lower Intestinal Tract, Via Natural or Artificial Opening Endoscopic (ICD-10-PCS; CPT 45378; principal; 2022-11-27 09:30)
DX: Z12.11 Encounter for screening for malignant neoplasm of colon (principal); K63.5 Polyp of colon; K64.0 First degree hemorrhoids; K59.00 Constipation, unspecified; I10 Essential (primary) hypertension; E78.5 Hyperlipidemia, unspecified; E11.9 Type 2 diabetes mellitus without complications; J45.909 Unspecified asthma, uncomplicated; G47.33 Obstructive sleep apnea (adult) (pediatric); I48.0 Paroxysmal atrial fibrillation; Z79.01 Long term (current) use of anticoagulants; Z79.899 Other long term (current) drug therapy
CPT/HCPCS: 45385; 88305

== ENCOUNTER → 2022-11-27 07:39 | Outpatient (BNV) | payer OTHER, SELFPAY | PROVIDERS: PCP Internal Medicine; Visit Provider Internal Medicine Gastroenterology | DX: Z12.11 Encounter for screening for malignant neoplasm of colon (principal); D12.3 Benign neoplasm of transverse colon; K64.0 First degree hemorrhoids | CPT/HCPCS: 45385 ==

== ENCOUNTER 2022-12-11 10:47 | Outpatient (AMB) | payer OTHER, SELFPAY ==
--- NOTE | 2022-12-11 10:58 | A.OFFVIS_ITS ---
Intake Vital Signs 12/11/22 11:01 Height 5 ft 8 in Weight 200 lb 2.876 oz BMI 30.4 BP 123/72 Blood Pressure Location Lt brachial Position Sitting Pulse 70 Intake Visit Reasons: S/P [place]; Dr. Salazar Intake Note: Omari presents in office as a est.patient for as post-op for [place] pt got it done 11.27.22 PT CC: pt reports having concerns pt denies any other GI Issues Manager Recovery Required: Yes Manager Recovery Language: Activity Coordinator Name: milagros Accompanied by: Self / Same As Patient Allergies No Known Allergies Allergy (Verified 12/11/22 10:59) HPI S/P [place]; Dr. Salazar HPI Details LAST VISIT Screen for colon cancer Patient reports that he seen his market developer Dr. Herrera and was told he is good to go for colonoscopy. 2-3 days holding the Eliquis. Patient denies any melena, hematochezia, unintentional weight loss or ribbon like stools. Patient denies any issues with anesthesia in the past. History of sleep apnea, patient is not using CPAP no history of infectious diseases in the past or present. Patient denies any respiratory or cardiac symptoms. Denies any family history of colorectal cancer. Discussed with patient what to expect before during and after the procedure. Importance of good bowel prep and clear liquid diet stressed to the patient. I will see him after the procedure. Patient is agreeable to this plan and verbalizes understanding of instructions. He was given the opportunity to ask questions and all questions answered. ? Thank you for allowing me to participate in his care Plan Medications New bisacodyl (Dulcolax (bisacodyl)) take 2 tabs at noon the day before your colonoscopy 10 mg (2 x 5 mg) PO ONCE 1 day 2 tabs 0RF Z12.11 polyethylene glycol 3350 (Miralax) As directed by gastroenterology department at [facility] 238 grams PO ONCE 238 grams 0RF Z12.11 COLONOSCOPY Findings: Terminal Ileum-normal Cecum:normal Ascending Colon: normal Transverse Colon - 10 mm sessile polyp removed with cold snare Descending Colon:normal Sigmoid Colon:? normal Rectum: Retroflexion with medium sized, slightly inflammed internal hemorrhoids, grade I Anorectum - normal Colon preparation: [place] Bowel Preparation Scale Right colon; 2 Transverse colon: 2 Left colon; 2 (0 = Unprepared colon segment with mucosa not seen due to solid stool that cannot be cleared. 1 = Portion of mucosa of the colon segment seen, but other areas of the colon segment not well seen due to staining, residual stool and/or opaque liquid. 2 = Minor amount of residual staining, small fragments of stool and/or opaque liquid, but mucosa of colon segment seen well. 3 = Entire mucosa of colon segment seen well with no residual staining, small fragments of stool or opaque liquid) Impression and Post Procedure Diagnosis: polyp internal hemorrhoids Plan: High fiber diet leaflet Avoid straining at stool, epsom salts and sitz bath, anusol supps or cream Repeat Colonoscopy in 5-7 years due to polyp or earlier if clinically indicated can restart eliquis tomorrow PATHOLOGY RESULT Diagnosis Colon, transverse, polyp:? Colonic mucosa with minimal hyperplastic changes; negative for adenomatous dysplasia. TODAY'S VISIT: Patient is here today for follow-up and to discuss colonoscopy results. Patient denies any ill effects from the prep, anesthesia or procedure itself. Colonoscopy results discussed with patient. Patient reports to be feeling well. Denies any GI concerning symptoms. Denies dyspepsia, dysphagia or odynophagia. Denies melena, hematochezia, unintentional weight loss or ribbon like stools. [facility] Medical History Acute appendicitis Asthma Diabetes HTN (hypertension) Hyperlipidemia Mood disorder Paroxysmal atrial fibrillation Sleep apnea Surgical History History of back surgery History of laparoscopic appendectomy (07/31/22) Hx of colonoscopy Status post laparoscopic appendectomy Family History Mother Esophageal cancer Social History Household Members: Family Alcohol intake: current Alcohol intake frequency: holidays/special occasions only Patient Tobacco Use Status: Never used Tobacco Second Hand Smoke Exposure: No service: No Current occupational status: retired Review of Systems Const Denies weight gain and Denies weight loss ENT Reports no additional complaints, Denies dysphagia and Denies odynophagia Card Reports no additional complaints Resp Reports no additional complaints GI Denies abdominal pain, Denies belching, Denies melena, Denies bloating, Denies change in bowel habits, Denies dysphagia, Denies excessive flatus, Denies dyspepsia, Denies heartburn, Denies diarrhea, Denies loose stools, Denies nausea, Denies odynophagia and Denies vomiting Reports no additional complaints Musc Reports no additional complaints Neuro Reports no additional complaints Psych Reports no additional complaints Endo Reports no additional complaints Physical Exam Vital Signs: Last Vital Signs Pulse 70 12/11/22 11:01 BP 123/72 12/11/22 11:01 BMI result Body Mass Index 30.4 Const General: healthy appearing, no acute distress, well developed and alert Nutritional Appearance: obese Orientation/consciousness: patient oriented x3 HEENT Head: Yes normal to inspection, Yes normocephalic and Yes atraumatic Face and sinus: Yes normal facial exam Mouth: Normal oral and palatal mucosa present Throat: Yes posterior oropharynx normal, Yes tonsils normal and Yes uvula midline Eyes General: appearance normal, both eyes and all related structures Neck Neck: Yes normal visual inspection Thyroid: Thyroid normal Carotids: normal carotid upstroke Resp Effort & Inspection: normal respiratory effort and able to speak in complete sentences Auscultation: clear to auscultation bilaterally Cardio Rate: regular rate Rhythm: regular rhythm Heart sounds: S1 normal heart sound present and S2 normal heart sound present GI Inspection: Yes normal to inspection, No Abdominal wall edema, No distended and Yes obesity Palpation (GI): Soft to palpation, not firm, nontender and No hepatosplenomegaly present Auscultation: normal bowel sounds General: Yes no CVA tenderness Back/Spine/Pelvis Back: no CVA tenderness Skin General skin exam: elasticity normal, turgor normal and dry skin Nails: clubbing Neuro General: patient oriented x3 Extrem General: Yes normal to inspection, Yes capillary refill normal and Yes no clubbing, cyanosis or edema Psych Appearance: grossly normal and well kempt Mental Status: mental status grossly normal Speech and movement: Normal speech and movement present Assessment & Plan Assessment & Plan (1) Status post colonoscopy: Code(s): Z98.890 - Other specified postprocedural states Plan: One hyperplastic polyp found. Patient will return for colorectal screening in 7 years, sooner if clinically necessary. Patient will follow-up with our department on as needed basis. He is agreeable to this plan and verbalizes understanding of instructions. He was given the opportunity to ask questions and all questions answered. Thank you for allowing me to participate in his care Coding Level of Care Code Est Pt Level 3 (81345) Diagnoses Status post colonoscopy Z98.890 Time Spent (min) 25 Comment 15 minutes spent with patient and additional 10 minutes spent reviewing his records
[2022-12-11 11:01] VITALS: BP 123/72; PULSE 70; BMI 30.4
== END 2022-12-11 11:15 | disposition home or self-care (01) ==
PROVIDERS: Visit Provider Nurse Practitioner Family
DX: Z98.890 Other specified postprocedural states (principal)
CPT/HCPCS: 99213

== ENCOUNTER → 2022-12-11 10:47 | Outpatient (BNVA) | payer OTHER, SELFPAY | PROVIDERS: Visit Provider Nurse Practitioner Family | DX: Z98.890 Other specified postprocedural states (principal) | CPT/HCPCS: 99212 ==